=== PATIENT | female | born 1950 | race Caucasian/White ===

== ENCOUNTER → 2017-03-26 | Outpatient (CLI) | payer BC | LOC: C.PAPS 16:03 | PROVIDERS: ATTEND Registered Nurse | DX: Z01.419 Encounter for gynecological examination (general) (routine) without abnormal findings (principal) ==

== ENCOUNTER 2021-01-27 09:37 | Inpatient (IN) ==
[2021-01-27 11:46] LABS: Hematocrit (blood only) 28.2 % (37-47); Hemoglobin 9.6 g/dL (12.0-16.0); Mean Corpuscular Hemoglobin 33.2 pg (25-34); Mean Corpuscular Volume 97.6 fL (80-100); Platelet Count 161 K/uL (130-400); RDW Coefficient of Variation 16.4 % (11.5-14.5); Red Blood Count 2.89 M/uL (4.2-5.4); White Blood Count 1.47 K/uL (4.8-10.8)
--- NOTE | 2021-01-27 11:48 | XRay Report ---
XR chest 1V portable CLINICAL HISTORY: Dyspnea. Non-Hodgkin's lymphoma. COMPARISON STUDY: Chest CT October 15, 2020. FINDINGS: A left subclavian [id number]-h-[id number] is in place. There is no pneumothorax or pleural effusion. Cardiomegaly is unchanged. Linear opacities within the right mid and lower lung are noted. There is n o lobar consolidation. IMPRESSION: 1. No acute cardiopulmonary findings. Cardiomegaly. 2. Linear right lower lung opacities which favor atelectasis. ACT 112: Negative or not required by law. Electronically signed by: Jef Hartman M.D. 01/27/2021 11:47 AM
[2021-01-27 11:52] LABS: Partial Thromboplastin Ratio 0.9; Partial Thromboplastin Time 22.7 Seconds (21.0-31.0); Prothrombin Time 10.6 Seconds (9.0-12.0)
[2021-01-27 12:09] LABS: Albumin Level 3.3 gm/dl (3.4-5.0); BUN Creatinine Ratio 11.9 (10-20); Calcium 8.3 mg/dl (8.5-10.1); Creatinine Clr Calc Pharmacy 76.3 ml/min; Potassium 3.9 mmol/L (3.5-5.1)
[2021-01-27 12:14] LABS: Basophils # (auto) 0.01 K/uL (0-0.2); Basophils % (auto) 0.7 %; Lymphocytes # (auto) 0.31 K/uL (1.2-3.4); Lymphocytes % (auto) 21.1 %; Monocytes # (auto) 0.18 K/uL (0.11-0.59); Monocytes % (auto) 12.2 %; Neutrophils # (auto) 0.97 K/uL (1.4-6.5)
[2021-01-27 12:22] LABS: Albumin Globulin Ratio 1.1 (0.9-2); Bilirubin,Total 0.6 mg/dl (0.2-1); Globulin 3.1 gm/dl (2.5-4.0); Total Protein 6.4 gm/dl (6.4-8.2); Troponin I 0.035 ng/ml (0-0.045)
[2021-01-27 12:56] LABS: Appearance Urine Cloudy (Clear); Bacteria Urine Automated 4+ (Negative); Bilirubin Urine Negative (Negative); Blood Urine Negative (Negative); Color Urine Dark Yellow; Epithelial Cell Urine Auto 20-30 /lpf (0-5); Glucose Urine UA Negative (Negative); Ketones Urine Trace (Negative); Leukocyte Esterase Urine Trace (Negative); Nitrite Urine Positive (Negative); Protein Urine 1+ (Negative); RBC Urine Automated 0-4 /hpf (0-4); Specific Gravity Urine 1.022 (1.000-1.030); Urobilinogen Urine Negative (Negative); WBC Urine Automated >30 /hpf (0-5); pH Urine 6.5 (4.5-7.5)
[2021-01-27] MEDS ORDERED: cefTRIAXone SODIUM 2,000 MG/70 ML BAG IV STA (13:13)
--- NOTE | 2021-01-27 13:20 | Emergency Department Note ---
Impression & Plan COVID-19, Non Hodgkin's lymphoma, Acute UTI (urinary tract infection) ED Provider Note INFORMANT: Patient ED PROVIDER(S): Dhiraj Tomas MD CHIEF COMPLAINT: Shortness of breath PLAN: Disposition: Admitted Condition: Good Outpatient prescription management: none Referral: None MEDICAL DECISION MAKING: Patient presented because of shortness of breath and Covid. Her blood work did not reveal any acute findings. She has a pancytopenia and mild neutropenia which is similar to prior. Twelve-lead ECG revealed a normal sinus rhythm with poor R wave progression. Chest x-ray did not reveal any significant pneumonia. Some atelectasis noted. The patient was quite symptomatic. She was in isolation. A CT PE study was ordered to further elucidate the issue. A viral pattern pneumonia was seen. This is likely consistent with her Covid. The patient's urinalysis was concerning for infection. She was treated with IV Rocephin. I did discuss the case with the [facility] service Dr. Coleman,. Patient was evaluated in the ER for further management. Triage Nursing notes reviewed and agree them. Additional history obtained from from her oncologist, Dr. Raines. Vital Signs: reviewed and remarkable for no significant abnormalities Differential diagnosis: Reactive airway disease, pneumonia, pneumothorax, COPD, CHF, infections, cardiac ischemia, pulmonary embolism, musculoskeletal, gastrointestinal, as well as other pathologies. Diagnostics interpreted by me: ECG: Twelve-lead ECG was normal sinus rhythm at 70 bpm. Poor R wave p rogression. No ST elevation or depression. No PVCs or PACs. Normal axis. Cardiac Monitoring: Cardiac monitoring ordered by me: The patient was placed on continuous cardiac monitoring and observed. It revealed a normal sinus rhythm at 79 beats per minute without ectopy or evidence of dysrhythmia. Imaging studies: Chest x-ray. Findings: A chest x-ray was performed and revealed no pneumothorax, effusion, infiltrate, pulmonary edema, free air under the diaphragm, or wide mediastinum. Impression: No acute disease. CT PE study is negative for pulmonary malaise however a viral pattern pneumonia is present. [facility]PI: The patient is a 70 year old female who presents to the Emergency Room with complaints of shortness of breath. The patient tested positive for Covid at the end of last week. This started last week and is worsening. The patient also notes the following associated symptoms, fatigue and generalized weakness. Patient is undergoing chemotherapy for lymphoma. She notified her oncologist and he directed her here to the ER for evaluation and admission. The patient has found no relieving factors. Current pain is rated as 0/10. Pt denies LOC, headache, fevers, chills, diaphoresis, visual changes, neck pain, chest pain, nausea, vomiting, abdominal pain, back pain, melena, hematochezia, urinary symptoms, numbness, lymphadenopathy, rash, or other complaints. ROS: See above HPI for pertinent positives & negatives. A total of 10 systems reviewed and were otherwise negative. 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 Oropharynx unremarkable. EYES: Normal conjunctiva. Sclera non-icteric. NECK: Inspection normal. Non-tender. Supple. No nuchal rigidity. FROM. No masses. RESPIRATORY: Clear to auscultation. No wheezes. No rales. Normal respiratory effort. CARDIAC: Normal rate. Normal rhythm. No murmurs. No rubs. Extremities warm and well perfused. Pulses equal. No JVD. GI: Soft, non-distended. No tenderness to palpation. No rebound or guarding. No masses. RECTAL: Deferred. MUSCULOSKELETAL: Atraumatic. Chest examination reveals no tenderness. The back is symmetrical on inspection without obvious abnormality. There is no CVA tenderness to palpation. No joint edema. LOWER EXTREMITIES: Calves are equal size bilaterally and non-tender. Trace edema. No discoloration. NEURO: Normal sensorium. No sensory or motor deficits noted. SKIN: No rash or jaundice noted. Dhiraj Tomas MD Past Med/Surg History Medical History GERD (gastroesophageal reflux disease) "MILD" Hyperlipidemia Hypertension Lymphoma NON HODGKINS - RECENT DX (REASON FOR PROCEDURE) Wheezing REASON FOR INHALER Surgical History H/O foot surgery RT FOOT "TOES STRAIGHTENED" H/O lymph node biopsy H/O tubal ligation In her 30's History of appendectomy In her 20's History of colonoscopy History of esophagogastroduodenoscopy (EGD) History of laparoscopic cholecystectomy History of tooth extraction Port-A-Cath in place (02/01/20) Insertion of Mediport with Fluoroscopy, Left Subclavian Dr. 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 [employer] Feels Safe at Home: Yes Assistive Devices: Contacts and Glasses Allergies Allergies Allergy/AdvReac Type Severity Reaction Status Date / Time lisinopril Allergy Severe FACIAL AND Verified 01/25/21 11:50 THROAT SWELLING Home Meds Home Medications Medication Instructions Recorded Confirmed diltiazem HCl 120 mg 120 mg PO QAM 01/16/20 01/27/21 capsule,extended release 24 hr furosemide 40 mg tablet 40 mg PO QAM 01/16/20 01/27/21 montelukast 10 mg tablet 10 mg PO QAM 01/16/20 01/27/21 potassium chloride 20 mEq 20 meq PO QAM 01/16/20 01/27/21 tablet,extended release(part/cryst) metoprolol succinate 50 mg PO QAM 01/25/21 01/27/21 omega 7-uwq-ftz-fish oil [Fish Oil] 2 cap PO QAM 01/25/21 01/27/21 prednisone 100 mg PO DAILY PRN 01/27/21 01/27/21 prochlorperazine maleate 10 mg PO Q6H PRN 01/27/21 01/27/21 Results & Data (ED) Vital Signs Vital Signs - 24 hr 01/27/21 09:44 01/27/21 11:00 01/27/21 11:01 Temperature 36.7 C Temperature Source Temporal Artery Scan Pulse Rate 83 69 69 Pulse Rate from SpO2 Sensor 69 69 Respiratory Rate 20 19 20 Respiratory Effort / Characteristics Spontaneous Blood Pressure 144/81 H 135/88 Blood Pressure Mean 102 103 Blood Pressure Position Sitting Pulse Oximetry 94 95 94 Oxygen Delivery Method Room Air Sepsis Recent Fever Within 48 Hours No Sepsis New/Unexplained Change in Mental Status No Sepsis Action Taken by Nursing No Action Required 01/27/21 11:27 01/27/21 11:30 01/27/21 11:31 Temperature Temperature Source Pulse Rate 67 71 Pulse Rate from SpO2 Sensor 67 71 Respiratory Rate 20 17 Respiratory Effort / Characteristics Blood Pressure 159/77 H Blood Pressure Mean 104 Blood Pressure Position Pulse Oximetry 96 94 94 Oxygen Delivery Method Room Air Sepsis Recent Fever Within 48 Hours Sepsis New/Unexplained Change in Mental Status Sepsis Action Taken by Nursing 01/27/21 12:00 01/27/21 12:01 01/27/21 12:30 Temperature Temperature Source Pulse Rate 65 68 72 Pulse Rate from SpO2 Sensor 65 68 74 Respiratory Rate 20 19 21 Respiratory Effort / Characteristics Blood Pressure 149/79 H 143/75 H Blood Pressure Mean 102 97 Blood Pressure Position Pulse Oximetry 93 94 96 Oxygen Delivery Method Sepsis Recent Fever Within 48 Hours Sepsis New/Unexplained Change in Mental Status Sepsis Action Taken by Nursing 01/27/21 12:31 01/27/21 13:00 01/27/21 13:01 Temperature Temperature Source Pulse Rate 71 74 71 Pulse Rate from SpO2 Sensor 72 73 72 Respiratory Rate 15 16 20 Respiratory Effort / Characteristics Blood Pressure 146/78 H Blood Pressure Mean 100 Blood Pressure Position Pulse Oximetry 97 95 96 Oxygen Delivery Method Sepsis Recent Fever Within 48 Hours Sepsis New/Unexplained Change in Mental Status Sepsis Action Taken by Nursing 01/27/21 13:30 01/27/21 13:31 01/27/21 14:00 Temperature Temperature Source Pulse Rate 82 73 85 Pulse Rate from SpO2 Sensor 79 73 85 Respiratory Rate 16 15 20 Respiratory Effort / Characteristics Blood Pressure 132/77 136/97 Blood Pressure Mean 95 110 Blood Pressure Position Pulse Oximetry 96 95 99 Oxygen Delivery Method Sepsis Recent Fever Within 48 Hours Sepsis New/Unexplained Change in Mental Status Sepsis Action Taken by Nursing 01/27/21 14:01 01/27/21 14:30 01/27/21 14:31 Temperature Temperature Source Pulse Rate 79 74 73 Pulse Rate from SpO2 Sensor 79 73 72 Respiratory Rate 16 17 13 Respiratory Effort / Characteristics Blood Pressure 152/75 H Blood Pressure Mean 100 Blood Pressure Position Pulse Oximetry 96 95 96 Oxygen Delivery Method Sepsis Recent Fever Within 48 Hours Sepsis New/Unexplained Change in Mental Status Sepsis Action Taken by Nursing 01/27/21 15:00 Temperature Temperature Source Pulse Rate 79 Pulse Rate from SpO2 Sensor 78 Respiratory Rate 25 H Respiratory Effort / Characteristics Blood Pressure 128/80 Blood Pressure Mean 96 Blood Pressure Position Pulse Oximetry 96 Oxygen Delivery Method Sepsis Recent Fever Within 48 Hours Sepsis New/Unexplained Change in Mental Status Sepsis Action Taken by Nursing Laboratory Data Result diagrams: 01/27/21 10:55 01/27/21 10:55 Lab Results 01/27/21 01/27/21 01/27/21 Range/Units 10:55 10:55 10:55 WBC 1.47 L (4.8-10.8) K/uL RBC 2.89 L (4.2-5.4) M/uL Hgb 9.6 L (12.0-16.0) g/dL Hct 28.2 L (37-47) % MCV 97.6 (80-100) fL MCH 33.2 (25-34) pg MCHC 34.0 (32-36) g/dL RDW Std Deviation 58.0 H (36.4-46.3) fL RDW Coeff of [place] 16.4 H (11.5-14.5) % Plt Count 161 (130-400) K/uL MPV 10.0 (7.4-10.4) fL Immature Gran % (Auto) 0.0 % Neut % (Auto) 66.0 % Lymph % (Auto) 21.1 % [place] % (Auto) 12.2 % Eos % (Auto) 0.0 % Baso % (Auto) 0.7 % Neut # (Auto) 0.97 L* (1.4-6.5) K/uL Lymph # (Auto) 0.31 L (1.2-3.4) K/uL [place] # (Auto) 0.18 (0.11-0.59) K/uL Eos # (Auto) 0.00 (0-0.5) K/uL Baso # (Auto) 0.01 (0-0.2) K/uL Immature Gran # (Auto) 0.00 (0.00-0.02) K/uL PT 10.6 (9.0-12.0) Seconds INR 1.0 (0.9-1.1) APTT 22.7 (21.0-31.0) Seconds PTT Ratio 0.9 Sodium 139 (136-145) mmol/L Potassium 3.9 (3.5-5.1) mmol/L Chloride 109 H (98-107) mmol/L Carbon Dioxide 27 (21-32) mmol/L Anion Gap 3.0 (3-11) BUN 9 (7-18) mg/dl Creatinine 0.78 (0.6-1.2) mg/dl Est Cr Clr Drug Dosing 76.3 ml/min Est GFR ( Amer) 88.0 Est GFR (Non-Af Amer) 76.0 BUN/Creatinine Ratio 11.9 (10-20) Glucose 105 H (70-99) mg/dl Calcium 8.3 L (8.5-10.1) mg/dl Magnesium 2.0 (1.8-2.4) mg/dl Total Bilirubin 0.6 (0.2-1) mg/dl AST 53 H (15-37) U/L ALT 56 (12-78) U/L Alkaline Phosphatase 124 H (45-117) U/L Troponin I 0.035 (0-0.045) ng/ml Total Protein 6.4 (6.4-8.2) gm/dl Albumin 3.3 L (3.4-5.0) gm/dl Globulin 3.1 (2.5-4.0) gm/dl Albumin/Globulin Ratio 1.1 (0.9-2) Urine Color Urine Appearance (Clear) Urine pH (4.5-7.5) Ur Specific [place] (1.000-1.030) Urine Protein (Negative) Urine Glucose (UA) (Negative) Urine Ketones (Negative) Urine Blood (Negative) Urine Nitrite (Negative) Urine Bilirubin (Negative) Urine Urobilinogen (Negative) Ur Leukocyte Esterase (Negative) Urine WBC (Auto) (0-5) /hpf Urine RBC (Auto) (0-4) /hpf U Hyaline Cast (Auto) (0-5) /lpf U Epithel Cells (Auto) (0-5) /lpf Urine Bacteria (Auto) (Negative) 01/27/21 Range/Units 12:22 WBC (4.8-10.8) K/uL RBC (4.2-5.4) M/uL Hgb (12.0-16.0) g/dL Hct (37-47) % MCV (80-100) fL MCH (25-34) pg MCHC (32-36) g/dL RDW Std Deviation (36.4-46.3) fL RDW Coeff of [place] (11.5-14.5) % Plt Count (130-400) K/uL MPV (7.4-10.4) fL Immature Gran % (Auto) % Neut % (Auto) % Lymph % (Auto) % [place] % (Auto) % Eos % (Auto) % Baso % (Auto) % Neut # (Auto) (1.4-6.5) K/uL Lymph # (Auto) (1.2-3.4) K/uL [place] # (Auto) (0.11-0.59) K/uL Eos # (Auto) (0-0.5) K/uL Baso # (Auto) (0-0.2) K/uL Immature Gran # (Auto) (0.00-0.02) K/uL PT (9.0-12.0) Seconds INR (0.9-1.1) APTT (21.0-31.0) Seconds PTT Ratio Sodium (136-145) mmol/L Potassium (3.5-5.1) mmol/L Chloride (98-107) mmol/L Carbon Dioxide (21-32) mmol/L Anion Gap (3-11) BUN (7-18) mg/dl Creatinine (0.6-1.2) mg/dl Est Cr Clr Drug Dosing ml/min Est GFR ( Amer) Est GFR (Non-Af Amer) BUN/Creatinine Ratio (10-20) Glucose (70-99) mg/dl Calcium (8.5-10.1) mg/dl Magnesium (1.8-2.4) mg/dl Total Bilirubin (0.2-1) mg/dl AST (15-37) U/L ALT (12-78) U/L Alkaline Phosphatase (45-117) U/L Troponin I (0-0.045) ng/ml Total Protein (6.4-8.2) gm/dl Albumin (3.4-5.0) gm/dl Globulin (2.5-4.0) gm/dl Albumin/Globulin Ratio (0.9-2) Urine Color Dark Yellow Urine Appearance Cloudy A (Clear) Urine pH 6.5 (4.5-7.5) Ur Specific [place] 1.022 (1.000-1.030) Urine Protein 1+ H (Negative) Urine Glucose (UA) Negative (Negative) Urine Ketones Trace H (Negative) Urine Blood Negative (Negative) Urine Nitrite Positive A (Negative) Urine Bilirubin Negative (Negative) Urine Urobilinogen Negative (Negative) Ur Leukocyte Esterase Trace H (Negative) Urine WBC (Auto) >30 H (0-5) /hpf Urine RBC (Auto) 0-4 (0-4) /hpf U Hyaline Cast (Auto) 5-10 H (0-5) /lpf U Epithel Cells (Auto) 20-30 H (0-5) /lpf Urine Bacteria (Auto) 4+ H (Negative) Administered Medications Discontinued Medications Ceftriaxone Sodium (Rocephin) 2,000 mg in 70 mls @ 140 mls/hr IV NOW STA Stop: 01/27/21 13:42 Last Infusion: 01/27/21 14:34 Dose: 0 mls/hr Documented by: [id number] Admin: 01/27/21 13:59 Dose: 140 mls/hr Documented by: [id number] Ioversol (Optiray 320 125ml) 120 ml IV ONCE ONE Stop: 01/27/21 14:15 Last Admin: 01/27/21 14:15 Dose: 120 ml Documented by: [id number] Discharge Plan Visit Data Chief Complaint: Illness Stated Complaint: +COVID,COUGH,REF BY DOC ED Provider: Dhiraj Tomas Discharge Problem: COVID-19, Non Hodgkin's lymphoma, Acute UTI (urinary tract infection) Forms Stand Alone Forms: [facility] Prescriptions Prescriptions: No Action potassium chloride [Klor-Con M20] 20 mEq tablet,ER particles/crystals 20 meq PO QAM RF: 0 diltiazem HCl 120 mg capsule,extended release 24hr 120 mg PO QAM RF: 0 montelukast 10 mg tablet 10 mg PO QAM RF: 0 furosemide 40 mg tablet 40 mg PO QAM RF: 0 prednisone 20 mg tablet 100 mg PO DAILY PRN (Reason: Chemo Treatments) RF: 0 prochlorperazine maleate 10 mg tablet 10 mg PO Q6H PRN (Reason: Nausea) RF: 0 metoprolol succinate 50 mg tablet extended release 24 hr 50 mg PO QAM RF: 0 omega 5-auz-skj-fish oil [Fish Oil] 1,200 (144-216) mg Capsule 2 cap PO QAM RF: 0
[2021-01-27] MEDS ORDERED: OPTIRAY 320 125ml IV ONE (14:14)
--- NOTE | 2021-01-27 14:38 | CT Scan Report ---
CT ANGIOGRAM OF THE CHEST CLINICAL HISTORY: covid +. LYMPHOMA COUGH, SHORTNESS OF BREATH. INABILITY TO DRINK COMPARISON STUDY: 10/25/2020 TECHNIQUE: Following the IV administration of 120 mL of Optiray-320, CT angiogram of the thorax was p erformed from the thoracic inlet to the lung bases utilizing the pulmonary embolus protocol. Images a re reviewed in the axial, sagittal, and coronal planes. IV contrast was administered without complica tion. MIP imaging was performed. A dose lowering technique was utilized adhering to the principles o f ALARA. CT DOSE: 571.96 mGycm FINDINGS: There is pathologic retroperitoneal lymphadenopathy within the upper abdomen. This is decreased when compared the prior study. No pathologically enlarged axillary mediastinal or hilar lymph nodes were visualized. Interval resolution of the previously described pleural base mass associated with the right third rib . There is mild right third rib sclerosis. There was no evidence of thoracic aortic dilatation. There were no pulmonary artery filling defects to indicate acute pulmonary embolism. No pleural effusions are visualized. There are multifocal groundglass pulmonary opacities with a peripheral distribution. The findings are consistent with a multifocal pneumonia, and are suggestive of Covid 19 pneumonia. IMPRESSION: 1. No evidence of acute pulmonary embolism 2. Decreasing retroperitoneal lymphadenopathy 3. Interval resolution of the previously described pleural-based mass associated with the right third rib 4. Interval development of multifocal groundglass pulmonary opacities with a peripheral distribution. The findings are consistent with although not specific for Covid 19 pneumonia ACT 112: Negative or not required by law. Electronically signed by: Peña Stoner M.D. 01/27/2021 2:37 PM
--- NOTE | 2021-01-27 15:07 | History & Physical Report ---
Date of Service January 27, 2021 Assessment & Plan (1) COVID-19: Covid pneumonia, this is slight on examination. Patient has a positive Covid test and a nonproductive cough. She has minor groundglass changes which are multifocal on CTA. She is not significantly hypoxemic. Will not institute remdesivir therapy or convalescent plasma at this time. We will start on dexamethasone monitor for hypoxia. In the ER she just had a few readings below 94% The majority of her symptoms may be related to a urinary tract infection present on admission CTA 01/27/21 IMPRESSION: 1. No evidence of acute pulmonary embolism 2. Decreasing retroperitoneal lymphadenopathy 3. Interval resolution of the previously described pleural-based mass associated with the right third rib 4. Interval development of multifocal groundglass pulmonary opacities with a peripheral distribution. The findings are consistent with although not specific for Covid 19 pneumonia (2) Acute UTI (urinary tract infection): pt received Rocephin in the ER document to be E. coli resistant to penicillin and quinolones per in ER culture 01/25/2021 patient likely has metabolic encephalopathy with her extreme fatigue from the neck gram-negative E. coli UTI will be treated with antibiotics and hopefully improve. She will receive 1 additional liter of fluid (3) Non Hodgkin's lymphoma: Patient continues treatment with non-Hodgkin's lymphoma receiving cyclic therapy woman gone 3 weeks off. She is due for therapy this week Patient has mild depression of her white blood cell count 1.47 on admission repeat with differential in the morning Patient also has mild elevation of AST the is slightly above normal at 53 and alk phos also slightly above normal at 124. (4) Hypertension: Patient remains on diltiazem metoprolol and furosemide for her hypertension control (5) Headache: Patient has a right retro-orbital headache try some Toradol to help with her pain. The patient was offered CT of her head with contrast to evaluate for metastatic disease she does not wish to proceed with this at this time. (6) DVT prophylaxis: Your diagnosis of lymphoma and recent diagnosis of Covid patient will be on Covid Lovenox weightbase 0.5/kg twice daily therapy for DVT prevention Confirm she is a full code History of Present Illness Primary Care Provider: William Gray 70 year old female who presents to the Emergency Room with complaints of shortness of breath. The patient tested positive for Covid 01/25/21. Patient was in the ER on that day and did have a urinary culture sent which is positive for E. coli which is resistant to penicillins and quinolones. She is not being on any antibiotics for that infection. Her upper respiratory symptoms started likely on 22 January and she has been worsening with a nonproductive cough extreme fatigue. Patient's had diarrhea on and off since her last chemotherapy which was approximately 3 weeks ago. Prior to her upper respiratory symptoms the patient was seen in the oncology clinic and given a liter of fluid for her diarrhea. She says this was at least 2 weeks ago. Patient has not lost taste or smell has had poor appetite since beginning her chemotherapy. Patient is due for her next cycle of chemotherapy this week. Patient is undergoing chemotherapy for follicular lymphoma. The patient has found no relieving factors. Current pain is rated as 0/10. Pt denies LOC, headache, fevers, chills, diaphoresis, visual changes, neck pain, chest pain, nausea, vomiting, abdominal pain, back pain, melena, hematochezia, urinary symptoms, numbness, lymphadenopathy, rash, or other complaints. Allergies Allergy/AdvReac Type Severity Reaction Status Date / Time lisinopril Allergy Severe FACIAL AND Verified 01/25/21 11:50 THROAT SWELLING Home Medications Medication Instructions Recorded Confirmed Type diltiazem HCl 120 mg 120 mg PO QAM 01/16/20 01/27/21 History capsule,extended release 24 hr furosemide 40 mg tablet 40 mg PO QAM 01/16/20 01/27/21 History montelukast 10 mg tablet 10 mg PO QAM 01/16/20 01/27/21 History potassium chloride 20 mEq 20 meq PO QAM 01/16/20 01/27/21 History tablet,extended release(part/cryst) metoprolol succinate 50 mg PO QAM 01/25/21 01/27/21 History omega 2-mzj-slc-fish oil [Fish Oil] 2 cap PO QAM 01/25/21 01/27/21 History prednisone 100 mg PO DAILY PRN 01/27/21 01/27/21 History prochlorperazine maleate 10 mg PO Q6H PRN 01/27/21 01/27/21 History Past Med/Surg History Medical History GERD (gastroesophageal reflux disease) "MILD" Hyperlipidemia Hypertension Lymphoma NON HODGKINS - RECENT DX (REASON FOR PROCEDURE) Wheezing REASON FOR INHALER Surgical History H/O foot surgery RT FOOT "TOES STRAIGHTENED" H/O lymph node biopsy H/O tubal ligation In her 30's History of appendectomy In her 20's History of colonoscopy History of esophagogastroduodenoscopy (EGD) History of laparoscopic cholecystectomy History of tooth extraction Port-A-Cath in place (02/01/20) Insertion of Mediport with Fluoroscopy, Left Subclavian Dr. 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 Beliefs That Will Affect Care: None marital status: / Current Living Situation: Alone current occupational status: employed current occupation: [id number] Feels Safe at Home: Yes Assistive Devices: Contacts and Glasses Review of Systems Review of Systems: Mild distress and moderate fatigue Complains of left retro-orbital headache, without blurry or double vision no speech or swallowing issues no chest pain, pressure or palpitations no shortness of breath, nonproductive cough but now wheezes no abdominal pain, nausea or vomiting, has had intermittent persistent diarrhea She has experienced dysuria over the last 24 hours with urinary frequency but no hematuria no focal joint pain or swelling no back pain, CVA tenderness or radicular pain no bruising, bleeding or rashes no focal signs of weakness or numbness or altered sensation no complaints of anxiety or depression.. Physical Exam Physical Exam: The patient appeared well nourished and normally developed. PERRL EOMI Vital signs as documented. Head exam is normocephalic atraumatic no scleral icterus Neck is without JVD, thyromegaly, or carotid bruits. Lungs there may be scant basilar rales which clear with inspiration no focal loss of breath sounds or egophony or dullness Cardiac exam, Rhythm is regular.. No murmurs, rubs or gallops. Abdominal exam reveals normal bowel sounds, soft non tender, no masses Extremities are nonedematous and both pedal pulses are present Neurologic exam is alert and oriented, no focal loss of strength or sensation Skin is without bruises or rashes Psychologically is without concerns for anxiety or depression Results & Data Results & Data ([facility]) Vital Signs (Past 12 Hours) Vital Signs Temp Pulse Resp BP Pulse Ox 01/27/21 14:31 73 13 96 01/27/21 14:30 74 17 152/75 H 95 01/27/21 14:01 79 16 96 01/27/21 14:00 85 20 136/97 99 01/27/21 13:31 73 15 95 01/27/21 13:30 82 16 132/77 96 01/27/21 13:01 71 20 96 01/27/21 13:00 74 16 146/78 H 95 01/27/21 12:31 71 15 97 01/27/21 12:30 72 21 143/75 H 96 01/27/21 12:01 68 19 94 01/27/21 12:00 65 20 149/79 H 93 01/27/21 11:31 71 17 94 01/27/21 11:30 67 20 159/77 H 94 01/27/21 11:27 96 01/27/21 11:01 69 20 94 01/27/21 11:00 69 19 135/88 95 01/27/21 09:44 98.1 F 83 20 144/81 H 94 PG Care Time/CCT Total # of Minutes Spent Total Time Spent with Patient: Total time spent is greater than 50% in coordination of care (as documented) at patient's floor/unit and/or counseling patient: Coding Level of Care Code 28065 Initial Inpt Care Lvl 3 Diagnoses COVID-19 U07.1 Acute UTI (urinary tract infection) N39.0 Non Hodgkin's lymphoma C85.90 Hypertension I10 Headache R51.9 DVT prophylaxis Z29.9
[2021-01-27] MEDS ORDERED: KETOROLAC 30 MG/ML VIAL IV ONE (15:41)
--- NOTE | 2021-01-27 16:16 | Electrocardiogram Report ---
Test Reason : Blood Pressure : / mmHG Vent. Rate : 070 BPM Atrial Rate : 070 BPM P-R Int : 166 ms QRS Dur : 102 ms QT Int : 394 ms P-R-T Axes : 080 001 060 degrees QTc Int : 425 ms Normal sinus rhythm When compared with ECG of 25-JAN-2021 11:29, No significant change was found Confirmed by Wally Orozco ([id number]) on 01/27/2021 4:15:58 PM Referred By: William Dykes Confirmed By:Petros Orozco
[2021-01-27] MEDS ORDERED: cefTRIAXone SODIUM 1,000 MG in DEXTROSE 5% 50 ML IV SCH (19:35)
[2021-01-27] MEDS ORDERED: SODIUM CHLORIDE 0.9% 1000ML 1,000 ML IV SCH (19:35)
[2021-01-27] MEDS ORDERED: ALUMINUM/MAGNESIUM SUSP 30 ML UDC PO PRN (19:35)
[2021-01-27] MEDS ORDERED: ENOXAPARIN 0.5 MG/KG SQ SCH (19:35)
[2021-01-27] MEDS ORDERED: ACETAMINOPHEN 500 MG TAB PO PRN (19:35)
[2021-01-27] MEDS ORDERED: POLYETHYLENE (MIRALAX) 17 GM PACK PO PRN (19:35)
[2021-01-27] MEDS ORDERED: ONDANSETRON INJ 2 MG/ML 2 ML VIAL IV PRN (19:35)
[2021-01-27] MEDS: dexAMETHasone 6 MG in SYRINGE 0 ML IV SCH (21:37)
[2021-01-27] MEDS: ENOXAPARIN INJ 60 MG/0.6 ML SYR SQ SCH (21:38)
[2021-01-28 07:06] LABS: Hematocrit (blood only) 27.7 % (37-47); Hemoglobin 9.5 g/dL (12.0-16.0); Lymphocytes # (auto) 0.12 K/uL (1.2-3.4); Lymphocytes % (auto) 20.3 %; Mean Corpuscular Hemoglobin 33.5 pg (25-34); Mean Corpuscular Hgb Conc 34.3 g/dL (32-36); Mean Corpuscular Volume 97.5 fL (80-100); Monocytes # (auto) 0.08 K/uL (0.11-0.59); Monocytes % (auto) 13.6 %; Neutrophils # (auto) 0.39 K/uL (1.4-6.5); Neutrophils % (auto) 66.1 %; Platelet Count 145 K/uL (130-400); RDW Coefficient of Variation 16.1 % (11.5-14.5); RDW Standard Deviation 57.1 fL (36.4-46.3); Red Blood Count 2.84 M/uL (4.2-5.4); White Blood Count 0.59 K/uL (4.8-10.8)
[2021-01-28 07:15] LABS: BUN Creatinine Ratio 13.3 (10-20); Calcium 8.2 mg/dl (8.5-10.1); Creatinine Clr Calc Pharmacy 89.7 ml/min; Est GFR (African American) 103.3; Est GFR (Non-African American) 89.2; Potassium 4.6 mmol/L (3.5-5.1)
[2021-01-28] MEDS: dexAMETHasone 6 MG in SYRINGE 0 ML IV SCH (07:39)
[2021-01-28] MEDS: ENOXAPARIN INJ 60 MG/0.6 ML SYR SQ SCH (07:39)
[2021-01-28] MEDS ORDERED: dilTIAZem HCL 120 MG CAPCR PO SCH (09:00)
[2021-01-28] MEDS ORDERED: FUROSEMIDE 40 MG TAB PO SCH (09:00)
[2021-01-28] MEDS ORDERED: OMEGA-3 (PURIFIED FISH OIL) 1 GM CAP PO SCH (09:00)
[2021-01-28] MEDS ORDERED: METOPROLOL SUCC 50MG EXT REL TAB PO SCH (09:00)
[2021-01-28] MEDS ORDERED: MONTELUKAST SODIUM 10 MG TABLET PO SCH (09:00)
[2021-01-28] MEDS ORDERED: POTASSIUM CHLORIDE CRTAB 20 MEQ TABCR PO SCH (09:00)
[2021-01-28] MEDS ORDERED: cefTRIAXone SODIUM 2,000 MG in DEXTROSE 5% 50 ML IV SCH (14:00)
--- NOTE | 2021-01-28 16:05 | Discharge Summary ---
Date of Service January 28, 2021 Admission HPI Per Admitting Provider 70 year old female who presents to the Emergency Room with complaints of shortness of breath. The patient tested positive for Covid 01/25/21. Patient was in the ER on that day and did have a urinary culture sent which is positive for E. coli which is resistant to penicillins and quinolones. She is not being on any antibiotics for that infection. Her upper respiratory symptoms started likely on 22 January and she has been worsening with a nonproductive cough extreme fatigue. Patient's had diarrhea on and off since her last chemotherapy which was approximately 3 weeks ago. Prior to her upper respiratory symptoms the patient was seen in the oncology clinic and given a liter of fluid for her diarrhea. She says this was at least 2 weeks ago. Patient has not lost taste or smell has had poor appetite since beginning her chemotherapy. Patient is due for her next cycle of chemotherapy this week. Patient is undergoing chemotherapy for follicular lymphoma. The patient has found no relieving factors. Current pain is rated as 0/10. Pt denies LOC, headache, fevers, chills, diaphoresis, visual changes, neck pain, chest pain, nausea, vomiting, abdominal pain, back pain, melena, hematochezia, urinary symptoms, numbness, lymphadenopathy, rash, or other complaints. Principal Diagnosis Acute UTI, Covid-19 Discharge Exam Constitutional WD/WN, vitals as above Eyes PERRL, conjunctivae normal, anicteric sclerae ENMT external ear and nose normal, oropharynx normal Neck trachea midline, no thyromegaly Respiratory normal respiratory effort, lungs clear to auscultation Cardiovascular RRR, no murmur, no edema Chest (Breasts) Chest: normal inspection of chest Gastrointestinal (Abdomen) normal bowel sounds, soft, nontender, no hepatosplenomegaly Musculoskeletal Extremities: extremities normal to inspection; no cyanosis and no clubbing Skin no rashes, warm and dry Neurologic moves all extremities and awake; no focal motor deficits Psychiatric A+Ox3, euthymic affect Lymphatic no lymphedema Discharge Data Allergies Allergy/AdvReac Type Severity Reaction Status Date / Time lisinopril Allergy Severe FACIAL AND Verified 02/01/21 09:30 THROAT SWELLING Consultations 01/27/21 15:50 ED Decision to Admit Stat Ordered Studies 01/27/21 13:13 CT angio chest PE protocol Stat Chest x-ray Hospital Course (1) COVID-19: Covid pneumonia, this is slight on examination. Patient has a positive Covid test and a nonproductive cough. She has minor groundglass changes which are multifocal on CTA. She is not significantly hypoxemic. Will not institute remdesivir therapy or convalescent plasma at this time. She was started on dexamethasone and did not have any significant hypoxia overnight. In the ER she just had a few readings below 94% The majority of her symptoms may be related to a urinary tract infection present on admission. Continue dexamethasone to finish out a 5-day course after discharge CTA 01/27/21 IMPRESSION: 1. No evidence of acute pulmonary embolism 2. Decreasing retroperitoneal lymphadenopathy 3. Interval resolution of the previously described pleural-based mass associated with the right third rib 4. Interval development of multifocal groundglass pulmonary opacities with a peripheral distribution. The findings are consistent with although not specific for Covid 19 pneumonia Monitor for worsening symptoms at home although she is at day 7 of her illness and is doing very well with this. No fevers, is neutropenic but no need to keep in house Blood cultures from several days ago were negative (2) Acute UTI (urinary tract infection): pt received Rocephin in the ER document to be E. coli resistant to penicillin and quinolones per in ER culture 01/25/2021 patient likely has metabolic encephalopathy with her extreme fatigue from the neck gram-negative E. coli UTI will be treated with antibiotics and is much improved Sent home with cefdinir to finish out a 1 week course (3) Non Hodgkin's lymphoma: Patient continues treatment with non-Hodgkin's lymphoma receiving cyclic therapy woman gone 3 weeks off. She is due for therapy this week but this will be delayed due to having Covid-19 With ANC 390, but afebrile Discussed case with oncology-she is stable for discharge home with follow-up next week (4) Hypertension: Patient remains on diltiazem metoprolol and furosemide for her hypertension control-continue such (5) Headache: Patient had a right retro-orbital headache-received Toradol to help with her pain and this is now completely resolved. The patient was offered CT of her head with contrast to evaluate for metastatic disease she does not wish to proceed with this at this time. (6) DVT prophylaxis: Lovenox Disposition-stable for discharge home Total Time Total Time Spent Total Time Spent (In Minutes): 35 minutes Total Time Includes: Examination of the Patient, Discharge Planning, Medication Reconciliation and Communication With Other Providers (Oncology) Discharge Plan Discharge Items Patient Disposition: Home - Self-Care Reason For Visit: METABOLIC ENCEPHALOPATHY,UTI POA,COVID PNEUMONIA Discharge Diagnosis: COVID-19 Pneumonia, UTI Condition on Discharge: Good Activity: As commented below Bathing: No limitations Exercise/Sports: Gradually increase as tolerated Non-emergency contact: Primary Care Provider and Oncologist Call non-emergency contact if: you have any medication questions and your symptoms worsen Follow-up/Referrals: William Dykes V., [Physician] - (Dr. Dykes would like you to call his office in the morning to reschedule your appointment.) William Gray [Primary Care Provider] - 02/18/21 2:00 pm (Follow up within 1-2 weeks.) Diet: Heart Healthy Addtl Attending Provider Instructions: Please finish out 3 more days of dexamethasone (a steroid) for your COVID pneumonia. Please finish out 6 more days of an antibiotic for you UTI. Follow up with Dr. Dykes-he wants you to call his office in the morning to schedule. If you have worsening shortness of breath, cough, chest pains, or fevers, please return to the ER. Pending Studies at Discharge: Yes Stand-Alone Forms: My [facility] Medications and DC Order Prescriptions: New cefdinir 300 mg capsule 300 mg PO BID Qty: 12 RF: 0 dexamethasone 6 mg tablet 6 mg PO DAILY Qty: 3 RF: 0 Continued potassium chloride [Klor-Con M20] 20 mEq tablet,ER particles/crystals 20 meq PO QAM RF: 0 diltiazem HCl 120 mg capsule,extended release 24hr 120 mg PO QAM RF: 0 montelukast 10 mg tablet 10 mg PO QAM RF: 0 furosemide 40 mg tablet 40 mg PO QAM RF: 0 prednisone 20 mg tablet 100 mg PO DAILY PRN (Reason: Chemo Treatments) RF: 0 prochlorperazine maleate 10 mg tablet 10 mg PO Q6H PRN (Reason: Nausea) RF: 0 metoprolol succinate 50 mg tablet extended release 24 hr 50 mg PO QAM RF: 0 omega 0-ztg-rwu-fish oil [Fish Oil] 1,200 (144-216) mg Capsule 2 cap PO QAM RF: 0 Discharge Orders: Discharge Order (Routine); Ordered 01/28/21 Ordered By: Denise Brito/Other Patient Handouts: COVID-19 Home Care, Urinary Tract Infections in Women, Disinfecting Your Home of COVID-19 Admission Data Admit Date/Time: 01/27/21 15:41 Attending Provider: Denise Heart Admit Provider: Gallo Coleman Primary Care Provider: William Gray Other Interventions: Discharge Summary Assessment (RN) Last Done: 01/28/21 16:13 Coding Level of Care Code D/C Day Management >30 mins Diagnoses COVID-19 U07.1 Acute UTI (urinary tract infection) N39.0 Non Hodgkin's lymphoma C85.90 Hypertension I10 Headache R51.9 DVT prophylaxis Z29.9
== END 2021-01-28 18:36 | disposition home or self-care (01) | DRG 177 ==
LOC: ED 09:37 → SUATTDRO 15:41 → 2S 15:41

== ENCOUNTER 2021-02-01 08:32 | Inpatient (IN) ==
[2021-02-01] MEDS ORDERED: dilTIAZem HCl 5 MG/ML 5 ML VIAL IV STA (09:12)
[2021-02-01] MEDS ORDERED: STAT IV Infusion **Titration per Protocol STA (09:12)
--- NOTE | 2021-02-01 09:12 | Emergency Department Note ---
Impression & Plan Atrial fibrillation with rapid ventricular response, COVID-19, Acute UTI (urinary tract infection) ED Provider Note NAME: MABEL PEREYRA AGE: 70 SEX: F : 1950 ARRIVES VIA: Walk-In INFORMANT: Patient ED PROVIDER(S): Shun Laboy DO CHIEF COMPLAINT: weakness HPI: Patient is a 70-year-old female with recent admission for Covid who presents to the ER for weakness. Her symptoms started on the with Covid. She still does have a little bit of a cough but denies any chest pain or shortness of breath. She notes that over the past 24 hours she feels extremely weak. History of non-Hodgkin's lymphoma last chemo about 3 weeks ago. Denies any belly pain nausea vomiting or diarrhea. No dysuria urgency or frequency. No other exacerbating or remitting factors. She is still taking her antibiotic for her UTI which grew out E. coli. She had no urinary symptoms at this time or when she was diagnosed with this. ROS: See above HPI for pertinent positives & negatives. A total of 10 systems reviewed and were otherwise negative. PAST MEDICAL HISTORY:See Below PAST SURGICAL HISTORY:See Below FAMILY HISTORY:See Below SOCIAL HISTORY:See Below HOME MEDICATIONS:See Below ALLERGIES:See Below VITALS:See Below PHYSICAL EXAMINATION: GENERAL: Sitting up in bed, alert, well appearing, well nourished, no distress, non-toxic EYE EXAM: normal conjunctiva. OROPHARYNX: no exudate, no erythema, lips, buccal mucosa, and tongue normal and mucous membranes are moist NECK: supple, no nuchal rigidity, no adenopathy, non-tender LUNGS: Clear to auscultation. Normal chest wall mechanics HEART: Tachycardic and irregular regular, S1 normal and S2 normal ABDOMEN: abdomen soft, non-tender, normo-active bowel sounds, no masses, no rebound or guarding. BACK: Back is symmetrical on inspection and there is no deformity, no midline tenderness, no CVA tenderness. SKIN: no rashes and no bruising UPPER EXTREMITIES: upper extremities are grossly normal. LOWER EXTREMITIES: No pitting edema. NEURO EXAM: Normal sensorium, cranial nerves II-XII grossly intact, normal speech, no gross weakness of arms, no gross weakness of legs. MEDICAL DECISION MAKING: Patient is a 70-year-old female who presents the ER for weakness. She was rece ntly diagnosed is Covid positive. She was admitted for UTI and Covid positive. She was recently discharged. Symptoms got worse for the past 24 hours. IV was established blood work was obtained. Labs show no significant leukocytosis. Mild anemia 11.8. INR unremarkable. BMP with mild hypokalemia. LFTs were workable for mild transaminitis. Bilirubin was normal. Troponin was detectable but not positive. UA was contaminated. EKG confirmed A. fib RVR. Rate would wax and wane between 130 and 90s. She was placed on a Cardizem drip. She was updated bedside. Discussed with hospitalist for further evaluation. Triage Nursing notes reviewed. Limited review of prior medical records performed Vital Signs: reviewed and remarkable for no significant abnormalities Differential diagnosis: Differential diagnoses includes but is not limited to toxic, metabolic, infectious, traumatic, cardiac, neurologic, hematologic, psychiatric and infl ammatory etiologies. ER treatment provided: See below Diagnostics interpreted by me: ECG: A. fib RVR rate of 106 Normal axis No PVCs Nonspecific ST wave changes QTC 448 Cardiac Monitoring: An order was placed for continuous cardiac monitoring. The monitor shows a rate of 125 with afib rhythm. Laboratory studies: As stated above and show below. Imaging studies: Portable AP upright 1 view of the chest shows no focal infiltrate or pneumothora x Consultation(s): Discussed with Dr. Jose Luis Coleman for further evaluation Procedures: none Critical Care: I have personally spent 31 minutes of critical care time in the direct management of this patient. This includes bedside care, interpretation of diagnostic studies, and testing, discussion with consultants, patient, and family members, and other required patient management activities. This 31 minutes is in excess of all separately billable procedures. Past Med/Surg History Medical History GERD (gastroesophageal reflux disease) "MILD" Hyperlipidemia Hypertension Lymphoma NON HODGKINS - RECENT DX (REASON FOR PROCEDURE) Wheezing REASON FOR INHALER Surgical History H/O foot surgery RT FOOT "TOES STRAIGHTENED" H/O lymph node biopsy H/O tubal ligation In her 30's History of appendectomy In her 20's History of colonoscopy History of esophagogastroduodenoscopy (EGD) History of laparoscopic cholecystectomy History of tooth extraction Port-A-Cath in place (02/01/20) Insertion of Mediport with Fluoroscopy, Left Subclavian Dr. Mead 02-01-20 Family History Mother Diabetes Heart disease Hypertension Father Heart disease Hypertension Social History Smoking Status: Former smoker Tobacco Type: Cigarettes Second Hand Exposure: No; Hx Alcohol Use: No Hx Substance Use: No Preferred Language: Kinyarwanda Communication Ability: Effective Family Medicine Physician Required: No Beliefs That Will Affect Care: None marital status: / Current Living Situation: Alone current occupational status: employed current occupation: [employer] Feels Safe at Home: Yes Assistive Devices: None Allergies Allergies Allergy/AdvReac Type Severity Reaction Status Date / Time lisinopril Allergy Severe FACIAL AND Verified 02/01/21 09:30 THROAT SWELLING Home Meds Home Medications Medication Instructions Recorded Confirmed diltiazem HCl 120 mg 120 mg PO QAM 01/16/20 02/01/21 capsule,extended release 24 hr furosemide 40 mg tablet 40 mg PO QAM 01/16/20 02/01/21 montelukast 10 mg tablet 10 mg PO QAM 01/16/20 02/01/21 potassium chloride 20 mEq 20 meq PO QAM 01/16/20 02/01/21 tablet,extended release(part/cryst) metoprolol succinate 50 mg PO QAM 01/25/21 02/01/21 omega 1-nry-rso-fish oil [Fish Oil] 2 cap PO QAM 01/25/21 02/01/21 prednisone 100 mg PO DAILY PRN 01/27/21 02/01/21 prochlorperazine maleate 10 mg PO Q6H PRN 01/27/21 02/01/21 Previous Rx's Medication Instructions Recorded cefdinir 300 mg PO BID #12 cap 01/28/21 dexamethasone 6 mg PO DAILY #3 tab 01/28/21 Results & Data (ED) Vital Signs Vital Signs - 24 hr 02/01/21 08:41 02/01/21 09:08 02/01/21 09:26 Temperature 36.5 C Temperature Source Skin Pulse Rate 77 101 H 96 H Pulse Rate from SpO2 Sensor 91 H 92 H Pulse Rhythm Regular Pulse Strength Normal Respiratory Rate 20 19 17 Respiratory Effort / Characteristics Non-Labored Spontaneous Respiratory Depth Normal Respiratory Pattern Regular Blood Pressure 123/83 128/76 115/69 Blood Pressure Mean 96 93 84 Pulse Oximetry 97 95 95 Oxygen Delivery Method Room Air Sepsis Recent Fever Within 48 Hours No Sepsis New/Unexplained Change in Mental Status N/A Sepsis Action Taken by Nursing No Action Required 02/01/21 09:30 02/01/21 10:00 02/01/21 10:15 Temperature Temperature Source Pulse Rate 128 H 91 H 85 Pulse Rate from SpO2 Sensor 100 H 88 84 Pulse Rhythm Pulse Strength Respiratory Rate 18 20 18 Respiratory Effort / Characteristics Respiratory Depth Respiratory Pattern Blood Pressure 130/75 121/95 114/81 Blood Pressure Mean 93 103 92 Pulse Oximetry 95 94 96 Oxygen Delivery Method Sepsis Recent Fever Within 48 Hours Sepsis New/Unexplained Change in Mental Status Sepsis Action Taken by Nursing 02/01/21 10:24 02/01/21 10:30 02/01/21 10:45 Temperature Temperature Source Pulse Rate 88 89 Pulse Rate from SpO2 Sensor 84 86 Pulse Rhythm Pulse Strength Respiratory Rate 21 19 Respiratory Effort / Characteristics Respiratory Depth Respiratory Pattern Blood Pressure 119/79 130/73 Blood Pressure Mean 92 92 Pulse Oximetry 96 95 95 Oxygen Delivery Method Room Air Sepsis Recent Fever Within 48 Hours Sepsis New/Unexplained Change in Mental Status Sepsis Action Taken by Nursing 02/01/21 11:00 02/01/21 11:15 02/01/21 11:30 Temperature Temperature Source Pulse Rate 84 77 83 Pulse Rate from SpO2 Sensor 87 83 76 Pulse Rhythm Pulse Strength Respiratory Rate 23 21 19 Respiratory Effort / Characteristics Respiratory Depth Respiratory Pattern Blood Pressure 113/73 126/71 137/84 Blood Pressure Mean 86 89 101 Pulse Oximetry 94 96 96 Oxygen Delivery Method Sepsis Recent Fever Within 48 Hours Sepsis New/Unexplained Change in Mental Status Sepsis Action Taken by Nursing 02/01/21 11:46 02/01/21 12:27 Temperature Temperature Source Pulse Rate 85 79 Pulse Rate from SpO2 Sensor 91 H 82 Pulse Rhythm Pulse Strength Respiratory Rate 21 19 Respiratory Effort / Characteristics Respiratory Depth Respiratory Pattern Blood Pressure 191/98 H 118/67 Blood Pressure Mean 129 84 Pulse Oximetry 95 94 Oxygen Delivery Method Sepsis Recent Fever Within 48 Hours Sepsis New/Unexplained Change in Mental Status Sepsis Action Taken by Nursing Laboratory Data Result diagrams: 02/01/21 09:03 02/01/21 09:03 Lab Results 02/01/21 02/01/21 02/01/21 Range/Units 09:03 09:03 09:03 WBC 6.08 (4.8-10.8) K/uL RBC 3.49 L (4.2-5.4) M/uL Hgb 11.8 L (12.0-16.0) g/dL Hct 33.7 L (37-47) % MCV 96.6 (80-100) fL MCH 33.8 (25-34) pg MCHC 35.0 (32-36) g/dL RDW Std Deviation 55.3 H (36.4-46.3) fL RDW Coeff of [place] 15.7 H (11.5-14.5) % Plt Count 222 (130-400) K/uL MPV 10.2 (7.4-10.4) fL Immature Gran % (Auto) 0.5 % Neut % (Auto) 78.7 % Lymph % (Auto) 13.7 % [place] % (Auto) 6.9 % Eos % (Auto) 0.0 % Baso % (Auto) 0.2 % Neut # (Auto) 4.79 (1.4-6.5) K/uL Lymph # (Auto) 0.83 L (1.2-3.4) K/uL [place] # (Auto) 0.42 (0.11-0.59) K/uL Eos # (Auto) 0.00 (0-0.5) K/uL Baso # (Auto) 0.01 (0-0.2) K/uL Immature Gran # (Auto) 0.03 H (0.00-0.02) K/uL PT 10.3 (9.0-12.0) Seconds INR 1.0 (0.9-1.1) Sodium 135 L (136-145) mmol/L Potassium 3.4 L (3.5-5.1) mmol/L Chloride 103 (98-107) mmol/L Carbon Dioxide 23 (21-32) mmol/L Anion Gap 9.0 (3-11) BUN 15 (7-18) mg/dl Creatinine 0.93 (0.6-1.2) mg/dl Est Cr Clr Drug Dosing 63.5 ml/min Est GFR ( Amer) 71.2 Est GFR (Non-Af Amer) 61.4 BUN/Creatinine Ratio 16.2 (10-20) Glucose 105 H (70-99) mg/dl Calcium 8.4 L (8.5-10.1) mg/dl Ionized Calcium (1.12-1.32) mmol/L Magnesium (1.8-2.4) mg/dl Total Bilirubin 0.7 (0.2-1) mg/dl AST 75 H (15-37) U/L ALT 104 H (12-78) U/L Alkaline Phosphatase 136 H (45-117) U/L Troponin I 0.024 (0-0.045) ng/ml Total Protein 6.8 (6.4-8.2) gm/dl Albumin 3.6 (3.4-5.0) gm/dl Globulin 3.2 (2.5-4.0) gm/dl Albumin/Globulin Ratio 1.1 (0.9-2) TSH 7.240 H (0.300-4.500) uIu/ml Free T4 1.22 (0.8-1.6) ng/dl Random Cortisol mcg/dl Urine Color Urine Appearance (Clear) Urine pH (4.5-7.5) Ur Specific [place] (1.000-1.030) Urine Protein (Negative) Urine Glucose (UA) (Negative) Urine Ketones (Negative) Urine Blood (Negative) Urine Nitrite (Negative) Urine Bilirubin (Negative) Urine Urobilinogen (Negative) Ur Leukocyte Esterase (Negative) Urine WBC (Auto) (0-5) /hpf Urine RBC (Auto) (0-4) /hpf U Hyaline Cast (Auto) (0-5) /lpf U Epithel Cells (Auto) (0-5) /lpf Urine Bacteria (Auto) (Negative) 02/01/21 02/01/21 02/01/21 Range/Units 09:03 09:03 09:03 WBC (4.8-10.8) K/uL RBC (4.2-5.4) M/uL Hgb (12.0-16.0) g/dL Hct (37-47) % MCV (80-100) fL MCH (25-34) pg MCHC (32-36) g/dL RDW Std Deviation (36.4-46.3) fL RDW Coeff of [place] (11.5-14.5) % Plt Count (130-400) K/uL MPV (7.4-10.4) fL Immature Gran % (Auto) % Neut % (Auto) % Lymph % (Auto) % [place] % (Auto) % Eos % (Auto) % Baso % (Auto) % Neut # (Auto) (1.4-6.5) K/uL Lymph # (Auto) (1.2-3.4) K/uL [place] # (Auto) (0.11-0.59) K/uL Eos # (Auto) (0-0.5) K/uL Baso # (Auto) (0-0.2) K/uL Immature Gran # (Auto) (0.00-0.02) K/uL PT (9.0-12.0) Seconds INR (0.9-1.1) Sodium (136-145) mmol/L Potassium (3.5-5.1) mmol/L Chloride (98-107) mmol/L Carbon Dioxide (21-32) mmol/L Anion Gap (3-11) BUN (7-18) mg/dl Creatinine (0.6-1.2) mg/dl Est Cr Clr Drug Dosing ml/min Est GFR ( Amer) Est GFR (Non-Af Amer) BUN/Creatinine Ratio (10-20) Glucose (70-99) mg/dl Calcium (8.5-10.1) mg/dl Ionized Calcium (1.12-1.32) mmol/L Magnesium 2.2 (1.8-2.4) mg/dl Total Bilirubin (0.2-1) mg/dl AST (15-37) U/L ALT (12-78) U/L Alkaline Phosphatase (45-117) U/L Troponin I (0-0.045) ng/ml Total Protein (6.4-8.2) gm/dl Albumin (3.4-5.0) gm/dl Globulin (2.5-4.0) gm/dl Albumin/Globulin Ratio (0.9-2) TSH (0.300-4.500) uIu/ml Free T4 (0.8-1.6) ng/dl Random Cortisol 4.09 mcg/dl Urine Color Yellow Urine Appearance Clear (Clear) Urine pH 8.0 H (4.5-7.5) Ur Specific [place] 1.011 (1.000-1.030) Urine Protein 2+ H (Negative) Urine Glucose (UA) Negative (Negative) Urine Ketones Negative (Negative) Urine Blood Negative (Negative) Urine Nitrite Negative (Negative) Urine Bilirubin Negative (Negative) Urine Urobilinogen Negative (Negative) Ur Leukocyte Esterase Negative (Negative) Urine WBC (Auto) 1-5 (0-5) /hpf Urine RBC (Auto) 0-4 (0-4) /hpf U Hyaline Cast (Auto) 10-30 H (0-5) /lpf U Epithel Cells (Auto) >30 H (0-5) /lpf Urine Bacteria (Auto) Negative (Negative) 02/01/21 Range/Units 12:11 WBC (4.8-10.8) K/uL RBC (4.2-5.4) M/uL Hgb (12.0-16.0) g/dL Hct (37-47) % MCV (80-100) fL MCH (25-34) pg MCHC (32-36) g/dL RDW Std Deviation (36.4-46.3) fL RDW Coeff of [place] (11.5-14.5) % Plt Count (130-400) K/uL MPV (7.4-10.4) fL Immature Gran % (Auto) % Neut % (Auto) % Lymph % (Auto) % [place] % (Auto) % Eos % (Auto) % Baso % (Auto) % Neut # (Auto) (1.4-6.5) K/uL Lymph # (Auto) (1.2-3.4) K/uL [place] # (Auto) (0.11-0.59) K/uL Eos # (Auto) (0-0.5) K/uL Baso # (Auto) (0-0.2) K/uL Immature Gran # (Auto) (0.00-0.02) K/uL PT (9.0-12.0) Seconds INR (0.9-1.1) Sodium (136-145) mmol/L Potassium (3.5-5.1) mmol/L Chloride (98-107) mmol/L Carbon Dioxide (21-32) mmol/L Anion Gap (3-11) BUN (7-18) mg/dl Creatinine (0.6-1.2) mg/dl Est Cr Clr Drug Dosing ml/min Est GFR ( Amer) Est GFR (Non-Af Amer) BUN/Creatinine Ratio (10-20) Glucose (70-99) mg/dl Calcium (8.5-10.1) mg/dl Ionized Calcium 1.02 L (1.12-1.32) mmol/L Magnesium (1.8-2.4) mg/dl Total Bilirubin (0.2-1) mg/dl AST (15-37) U/L ALT (12-78) U/L Alkaline Phosphatase (45-117) U/L Troponin I (0-0.045) ng/ml Total Protein (6.4-8.2) gm/dl Albumin (3.4-5.0) gm/dl Globulin (2.5-4.0) gm/dl Albumin/Globulin Ratio (0.9-2) TSH (0.300-4.500) uIu/ml Free T4 (0.8-1.6) ng/dl Random Cortisol mcg/dl Urine Color Urine Appearance (Clear) Urine pH (4.5-7.5) Ur Specific [place] (1.000-1.030) Urine Protein (Negative) Urine Glucose (UA) (Negative) Urine Ketones (Negative) Urine Blood (Negative) Urine Nitrite (Negative) Urine Bilirubin (Negative) Urine Urobilinogen (Negative) Ur Leukocyte Esterase (Negative) Urine WBC (Auto) (0-5) /hpf Urine RBC (Auto) (0-4) /hpf U Hyaline Cast (Auto) (0-5) /lpf U Epithel Cells (Auto) (0-5) /lpf Urine Bacteria (Auto) (Negative) Administered Medications Apixaban (Apixaban 2.5 Mg Tab) 5 mg PO BID ZOË Stop: 03/03/21 12:14 Last Admin: 02/01/21 12:28 Dose: 5 mg Documented by: [id number] Diltiazem HCl (Diltiazem Hcl 120 Mg Capcr) 120 mg PO QAM ZOË Stop: 03/03/21 11:59 Last Admin: 02/01/21 12:28 Dose: 120 mg Documented by: [id number] Metoprolol Succinate (Metoprolol Succ 50mg Ext Rel Tab) 50 mg PO QAM [facility] Stop: 03/03/21 11:59 Last Admin: 02/01/21 12:28 Dose: 50 mg Documented by: [id number] Potassium Chloride (Potassium Chloride Crtab 20 Meq Tabcr) 20 meq PO QAM ZOË Stop: 03/03/21 11:59 Last Admin: 02/01/21 12:27 Dose: 20 meq Documented by: [id number] Discontinued Medications Diltiazem HCl (Diltiazem Hcl 5 Mg/Ml 5 Ml Vial) 10 mg IV NOW STA Stop: 02/01/21 09:13 Last Admin: 02/01/21 09:17 Dose: Not Given Documented by: [id number] Sodium Chloride (Nss) 500 mls @ 999 mls/hr IV .Q31M ZOË Stop: 02/01/21 09:45 Last Infusion: 02/01/21 09:44 Dose: 0 mls/hr Documented by: [id number] Admin: 02/01/21 09:13 Dose: 999 mls/hr Documented by: [id number] Diltiazem HCl 125 mg/ Dextrose 125 mls @ 5 mls/hr IV .Q24H ZOË; Protocol Stop: 03/03/21 09:14 Last Titration: 02/01/21 12:45 Dose: 0 mg/hr, 0 mls/hr Documented by: [id number] Cosigned by: [id number] Admin: 02/01/21 10:07 Dose: 5 mg/hr, 5 mls/hr Documented by: [id number] Cosigned by: [id number] Miscellaneous (Stat Iv Infusion Titration Per Protocol) 1 ea N/A NOW STA Stop: 02/01/21 09:13 Last Admin: 02/01/21 10:07 Dose: Not Given Documented by: [id number] Discharge Plan Visit Data Chief Complaint: Urinary Symptoms Stated Complaint: COVID+ - CHEMO PT - ONGOING UTI ISSUES ED Provider: Shun Laboy Discharge Problem: Atrial fibrillation with rapid ventricular response, COVID-19, Acute UTI (urinary tract infection) Forms Stand Alone Forms: [facility] [employer] Prescriptions Prescriptions: No Action potassium chloride [Klor-Con M20] 20 mEq tablet,ER particles/crystals 20 meq PO QAM RF: 0 diltiazem HCl 120 mg capsule,extended release 24hr 120 mg PO QAM RF: 0 montelukast 10 mg tablet 10 mg PO QAM RF: 0 furosemide 40 mg tablet 40 mg PO QAM RF: 0 prednisone 20 mg tablet 100 mg PO DAILY PRN (Reason: Chemo Treatments) RF: 0 prochlorperazine maleate 10 mg tablet 10 mg PO Q6H PRN (Reason: Nausea) RF: 0 cefdinir 300 mg capsule 300 mg PO BID Qty: 12 RF: 0 dexamethasone 6 mg tablet 6 mg PO DAILY Qty: 3 RF: 0 metoprolol succinate 50 mg tablet extended release 24 hr 50 mg PO QAM RF: 0 omega 7-yqn-zhf-fish oil [Fish Oil] 1,200 (144-216) mg Capsule 2 cap PO QAM RF: 0
[2021-02-01] MEDS ORDERED: SODIUM CHLORIDE 0.9% 500 ML IV SCH (09:15)
[2021-02-01] MEDS ORDERED: dilTIAZem HCL 125 MG in DEXTROSE 5% 100 ML IV SCH (09:15)
[2021-02-01 09:29] LABS: Basophils # (auto) 0.01 K/uL (0-0.2); Basophils % (auto) 0.2 %; Hematocrit (blood only) 33.7 % (37-47); Hemoglobin 11.8 g/dL (12.0-16.0); Immature Granulocytes # (auto) 0.03 K/uL (0.00-0.02); Immature Granulocytes % (auto) 0.5 %; Lymphocytes # (auto) 0.83 K/uL (1.2-3.4); Lymphocytes % (auto) 13.7 %; Mean Corpuscular Hemoglobin 33.8 pg (25-34); Mean Corpuscular Volume 96.6 fL (80-100); Mean Platelet Volume 10.2 fL (7.4-10.4); Monocytes # (auto) 0.42 K/uL (0.11-0.59); Monocytes % (auto) 6.9 %; Neutrophils # (auto) 4.79 K/uL (1.4-6.5); Neutrophils % (auto) 78.7 %; Platelet Count 222 K/uL (130-400); RDW Coefficient of Variation 15.7 % (11.5-14.5); RDW Standard Deviation 55.3 fL (36.4-46.3); Red Blood Count 3.49 M/uL (4.2-5.4); White Blood Count 6.08 K/uL (4.8-10.8)
[2021-02-01 09:32] LABS: Appearance Urine Clear (Clear); Bacteria Urine Automated Negative (Negative); Bilirubin Urine Negative (Negative); Blood Urine Negative (Negative); Color Urine Yellow; Epithelial Cell Urine Auto >30 /lpf (0-5); Glucose Urine UA Negative (Negative); Ketones Urine Negative (Negative); Leukocyte Esterase Urine Negative (Negative); Nitrite Urine Negative (Negative); RBC Urine Automated 0-4 /hpf (0-4); Specific Gravity Urine 1.011 (1.000-1.030); Urobilinogen Urine Negative (Negative)
[2021-02-01 09:39] LABS: Protein Urine 2+ (Negative)
[2021-02-01 09:40] LABS: Prothrombin Time 10.3 Seconds (9.0-12.0)
--- NOTE | 2021-02-01 09:45 | XRay Report ---
XR chest 1V portable HISTORY: weakness COMPARISON: 01/27/2021. FINDINGS: No pneumothorax. No pleural effusions. The left subclavian Port-A-Cath which range in the S VC. The heart remains borderline enlarged. The upper lung zones are clear. Hazy bibasilar airspace op acities have improved. Mild emphysema. IMPRESSION: Improvement in the hazy bibasilar airspace opacities suggesting a resolving pneumonia. ACT 112: Negative or not required by law. Electronically signed by: Anand Navarro M.D. 02/01/2021 9:44 AM
[2021-02-01 09:48] LABS: Albumin Level 3.6 gm/dl (3.4-5.0); BUN Creatinine Ratio 16.2 (10-20); Calcium 8.4 mg/dl (8.5-10.1); Creatinine Clr Calc Pharmacy 63.5 ml/min; Est GFR (African American) 71.2; Est GFR (Non-African American) 61.4; Potassium 3.4 mmol/L (3.5-5.1)
[2021-02-01 09:59] LABS: Albumin Globulin Ratio 1.1 (0.9-2); Bilirubin,Total 0.7 mg/dl (0.2-1); Globulin 3.2 gm/dl (2.5-4.0); Thyroid Stimulating Hormone 7.24 uIu/ml (0.300-4.500); Total Protein 6.8 gm/dl (6.4-8.2); Troponin I 0.024 ng/ml (0-0.045)
[2021-02-01 10:11] LABS: T4 Free Thyroxine 1.22 ng/dl (0.8-1.6)
[2021-02-01] MEDS ORDERED: METOPROLOL TARTRATE 1 MG/ML VIAL IV PRN (12:20)
[2021-02-01] MEDS: POTASSIUM CHLORIDE CRTAB 20 MEQ TABCR PO SCH (12:27)
[2021-02-01] MEDS: dilTIAZem HCL 120 MG CAPCR PO SCH (12:28)
[2021-02-01] MEDS: METOPROLOL SUCC 50MG EXT REL TAB PO SCH (12:28)
[2021-02-01] MEDS: APIXABAN 2.5 MG TAB PO SCH ×2 (12:28→23:09)
--- NOTE | 2021-02-01 12:30 | History & Physical Report ---
Date of Service February 01, 2021 Assessment & Plan (1) Afib: Patient with new onset afib, unknown onset. Last ECG [id number] with NSR. - Patient currently rate controlled, will give oral Metoprolol succinate 50mg and Diltiazem ER 120; then discontinue drip - PRN Lopressor 5mg IV for rate >120 - If needed for rate control can increase oral doses of Metoprolol and/or Diltiazem - Electrolytes pending, goal K- 4.0, Mag >2.0, iCA >1.12- Replete as needed - PCU Med telemetry- monitor rate controll - CHADS VASC-1; However goal to offer return to NSR and unknown onset of afib will place Apixaban 5mg PO BID starting now. - Cardiology consulted and have discussed with Dr. Phillips. TSH- 7.2 with normal T4- not on therapy Random Cortisol is pending (2) Obesity: Will check HGB A1c- mild hyperglycemia might have small component of type II insulin resistance - Continue to work up this will change her CHADSVac-2 (3) Acute UTI (urinary tract infection): Urine looks improved will be on Cefdinir until February 06 - Then can discontinue (4) Hypertension: Well controlled - Continue Metoprolol, Diltiazem and Lasix - Will restart Lasix tomorrow to not over diurese with her PO intake decrease - Last EF in Oct 27, EF 50-55% no valve abnormalities - would be worth repeating when 15 days out from COVID infection if remains in a-fib (5) COVID-19: Continue Decadron - Overall was feeling well - Inflammatory markers may still be elevating liver enzymes - Troponin mild at 0.024 and new afib- if hemodynamics come to be effective will definitely obtain an ECHO - Will be on therapeutic Apixaban (6) Non Hodgkin's lymphoma: Was supposed to get CHEMO this past week but was in with COVID-19 Will have to re-coordinate with her oncologist for therapy - Predominantly abodomen and pancreas (7) Elevated liver enzymes: Will get RUQUS- asymptomatic again this may just be inflammatory of COVID and/or her NHL - Trend over hospital stay- right now no acute needs - ALkPO4 chronically elevated as well with her Non Hodkins Lymphoma History of Present Illness Primary Care Provider: William Gray 70 YOF with past medical history of COVID-19 ([id number]) discharged on [id number], UTI, HTN, obesity, Non-Hodgkin lymphoma on cyclic therapy (did not get her therapy last week). She was discharged home on cefdinir and oral dexame thasone and was feeling well except for the past 2 days, she came to the emergency room for generalized of unwell feeling and was noted to be in atrial fibrillation with HR 120 where she was started on a diltiazem drip with no bolus. The medicine team was notified for admission. On my evaluation, the patient is in afib, in the 70-80's with no ectopy. She has not taken any of her oral medications today. Generally the patient states she felt well upon discharge and two days ago started feeling tired and run down and "can't explain it, just feel blah". She has noted decrease intake in food, but has been trying to stay hydrated. She denies any fevers or chills, shortness of breath, abdominal pain, chest pain, leg pain. Patient will be admitted for monitoring on telemetry. Electrolytes are pending. Will give her oral medications now and stop her diltiazem drip admit to PCU telemetry. Allergies Allergy/AdvReac Type Severity Reaction Status Date / Time lisinopril Allergy Severe FACIAL AND Verified 02/01/21 09:30 THROAT SWELLING Home Medications Medication Instructions Recorded Confirmed Type diltiazem HCl 120 mg 120 mg PO QAM 01/16/20 02/01/21 History capsule,extended release 24 hr furosemide 40 mg tablet 40 mg PO QAM 01/16/20 02/01/21 History montelukast 10 mg tablet 10 mg PO QAM 01/16/20 02/01/21 History potassium chloride 20 mEq 20 meq PO QAM 01/16/20 02/01/21 History tablet,extended release(part/cryst) metoprolol succinate 50 mg PO QAM 01/25/21 02/01/21 History omega 1-kdb-nch-fish oil [Fish Oil] 2 cap PO QAM 01/25/21 02/01/21 History prednisone 100 mg PO DAILY PRN 01/27/21 02/01/21 History prochlorperazine maleate 10 mg PO Q6H PRN 01/27/21 02/01/21 History cefdinir 300 mg PO BID #12 cap 01/28/21 02/01/21 Rx dexamethasone 6 mg PO DAILY #3 tab 01/28/21 02/01/21 Rx Past Med/Surg History Medical History GERD (gastroesophageal reflux disease) "MILD" Hyperlipidemia Hypertension Lymphoma NON HODGKINS - RECENT DX (REASON FOR PROCEDURE) Wheezing REASON FOR INHALER Surgical History H/O foot surgery RT FOOT "TOES STRAIGHTENED" H/O lymph node biopsy H/O tubal ligation In her 30's History of appendectomy In her 20's History of colonoscopy History of esophagogastroduodenoscopy (EGD) History of laparoscopic cholecystectomy History of tooth extraction Port-A-Cath in place (02/01/20) Insertion of Mediport with Fluoroscopy, Left Subclavian Dr. 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 [employer] Other Information That Helps Us Care for You: No Feels Safe at Home: Yes Safety Concerns: Feels Safe At This Time Assistive Devices: None Review of Systems Review of Systems: REVIEW OF SYSTEMS: Constitutional: (+) feeling unwell, No fever, sweats or chills, Eyes: No diplopia, no worsening or blurred vision ENT: normal hearing, no trouble swallowing Respiratory: (+) cough, (-) sputum, dyspnea at rest or on exertion Cardiovascular: No chest pain, tightness or palpitations Abdomen: No pain, nausea, vomiting, diarrhea or constipation Musculoskeletal: No joint pain, calf pain, swelling Neurologic: No weakness, numbness/tingling, or balance problems Psychiatric: No anxiety or depression Skin: No rash or itch Physical Exam Physical Exam: PHYSICAL EXAM: General: awake, alert, no apparent distress Head: Normocephalic, atraumatic ENT: PERRL, EOMI, no pharyngeal exudate, mucous membranes moist Neuro: AAO x 3, speech clear and appropriate, strength intact bilaterally 5/5, sensation intact and equal all extremities and dermatomes, no pronator drift Chest: equal rise and fall of the chest, no accessory muscle use, no heaves or thirlls, Clear to auscultation, on room air, Cardiac: irregular rate and rhythm, telemetry reviewed, skin warm dry, cap refill <3 seconds, peripheral pulses +2 no JVD, no murmur, no edema GI: NABS x 4 quadrants, soft, nontender to palpation, no rebound, guarding or tenderness : Spontaneously voiding, no pain, no CVA tenderness, Extremities: Normal inspection, no peripheral edema or erythema, calfs nontender to palpation Psych: Normal mood and affect Skin: no rash or erythema Results & Data Results & Data ([facility]) Vital Signs (Past 12 Hours) Vital Signs Temp Pulse Resp BP Pulse Ox 02/01/21 11:46 85 21 191/98 H 95 02/01/21 11:30 83 19 137/84 96 02/01/21 11:15 77 21 126/71 96 02/01/21 11:00 84 23 113/73 94 02/01/21 10:45 89 19 130/73 95 02/01/21 10:30 88 21 119/79 95 02/01/21 10:24 96 02/01/21 10:15 85 18 114/81 96 02/01/21 10:00 91 H 20 121/95 94 02/01/21 09:30 128 H 18 130/75 95 02/01/21 09:26 96 H 17 115/69 95 02/01/21 09:08 101 H 19 128/76 95 02/01/21 08:41 36.5 C 77 20 123/83 97 Laboratory Results Abnormal lab results 02/01/21 02/01/21 02/01/21 Range/Units 09:03 09:03 09:03 RBC 3.49 L (4.2-5.4) M/uL Hgb 11.8 L (12.0-16.0) g/dL Hct 33.7 L (37-47) % RDW Std Deviation 55.3 H (36.4-46.3) fL RDW Coeff of [place] 15.7 H (11.5-14.5) % Lymph # (Auto) 0.83 L (1.2-3.4) K/uL Immature Gran # (Auto) 0.03 H (0.00-0.02) K/uL Sodium 135 L (136-145) mmol/L Potassium 3.4 L (3.5-5.1) mmol/L Glucose 105 H (70-99) mg/dl Calcium 8.4 L (8.5-10.1) mg/dl AST 75 H (15-37) U/L ALT 104 H (12-78) U/L Alkaline Phosphatase 136 H (45-117) U/L TSH 7.240 H (0.300-4.500) uIu/ml Urine pH 8.0 H (4.5-7.5) Urine Protein 2+ H (Negative) U Hyaline Cast (Auto) 10-30 H (0-5) /lpf U Epithel Cells (Auto) >30 H (0-5) /lpf Diagnostic Findings XR chest 1V portable HISTORY: weakness COMPARISON: 01/27/2021. FINDINGS: No pneumothorax. No pleural effusions. The left subclavian Port-A-Cath which range in the SVC. The heart remains borderline enlarged. The upper lung zones are clear. Hazy bibasilar airspace opacities have improved. Mild emphysema. IMPRESSION: Improvement in the hazy bibasilar airspace opacities suggesting a resolving pneumonia. Medications Administered Apixaban (Apixaban 2.5 Mg Tab) 5 mg PO BID [facility] Stop: 03/03/21 12:14 Last Admin: 02/01/21 12:28 Dose: 5 mg Documented by: [id number] Diltiazem HCl (Diltiazem Hcl 120 Mg Capcr) 120 mg PO QAM ZOË Stop: 03/03/21 11:59 Last Admin: 02/01/21 12:28 Dose: 120 mg Documented by: [id number] Metoprolol Succinate (Metoprolol Succ 50mg Ext Rel Tab) 50 mg PO QAM [facility] Stop: 03/03/21 11:59 Last Admin: 02/01/21 12:28 Dose: 50 mg Documented by: [id number] Potassium Chloride (Potassium Chloride Crtab 20 Meq Tabcr) 20 meq PO QAM [facility] Stop: 03/03/21 11:59 Last Admin: 02/01/21 12:27 Dose: 20 meq Documented by: [id number] Discontinued Medications Diltiazem HCl (Diltiazem Hcl 5 Mg/Ml 5 Ml Vial) 10 mg IV NOW STA Stop: 02/01/21 09:13 Last Admin: 02/01/21 09:17 Dose: Not Given Documented by: [id number] Sodium Chloride (Nss) 500 mls @ 999 mls/hr IV .Q31M ZOË Stop: 02/01/21 09:45 Last Infusion: 02/01/21 09:44 Dose: 0 mls/hr Documented by: [id number] Admin: 02/01/21 09:13 Dose: 999 mls/hr Documented by: [id number] Diltiazem HCl 125 mg/ Dextrose 125 mls @ 5 mls/hr IV .Q24H [facility]; Protocol Stop: 03/03/21 09:14 Last Admin: 02/01/21 10:07 Dose: 5 mg/hr, 5 mls/hr Documented by: [id number] Cosigned by: [id number] Miscellaneous (Stat Iv Infusion Titration Per Protocol) 1 ea N/A NOW STA Stop: 02/01/21 09:13 Last Admin: 02/01/21 10:07 Dose: Not Given Documented by: [id number] Home Medications diltiazem HCl 120 mg capsule,extended release 24 hr 120 mg PO QAM 01/16/20 [History Confirmed 02/01/21] furosemide 40 mg tablet 40 mg PO QAM 01/16/20 [History Confirmed 02/01/21] montelukast 10 mg tablet 10 mg PO QAM 01/16/20 [History Confirmed 02/01/21] potassium chloride 20 mEq tablet,extended release(part/cryst) 20 meq PO QAM 01/16/20 [History Confirmed 02/01/21] metoprolol succinate 50 mg PO QAM 01/25/21 [History Confirmed 02/01/21] omega 4-iiy-vbl-fish oil [Fish Oil] 2 cap PO QAM 01/25/21 [History Confirmed 02/01/21] prednisone 100 mg PO DAILY PRN 01/27/21 [History Confirmed 02/01/21] prochlorperazine maleate 10 mg PO Q6H PRN 01/27/21 [History Confirmed 02/01/21] cefdinir 300 mg PO BID #12 cap 01/28/21 [Rx Confirmed 02/01/21] dexamethasone 6 mg PO DAILY #3 tab 01/28/21 [Rx Confirmed 02/01/21] Active Medications Apixaban (Apixaban 2.5 Mg Tab) 5 mg PO BID [facility] Stop: 03/03/21 12:14 Last Admin: 02/01/21 12:28 Dose: 5 mg Documented by: Diltiazem HCl (Diltiazem Hcl 120 Mg Capcr) 120 mg PO QAM [facility] Stop: 03/03/21 11:59 Last Admin: 02/01/21 12:28 Dose: 120 mg Documented by: Metoprolol Succinate (Metoprolol Succ 50mg Ext Rel Tab) 50 mg PO QAM [facility] Stop: 03/03/21 11:59 Last Admin: 02/01/21 12:28 Dose: 50 mg Documented by: Metoprolol Tartrate (Metoprolol Tartrate 1 Mg/Ml Vial) 5 mg IV Q4 PRN PRN Reason: HR >120 afib/flutter Stop: 03/03/21 12:19 Potassium Chloride (Potassium Chloride Crtab 20 Meq Tabcr) 20 meq PO QAM [facility] Stop: 03/03/21 11:59 Last Admin: 02/01/21 12:27 Dose: 20 meq Documented by: ECG Additional Comments: Atrial fibrillation with rapid ventricular response with premature ventricular or aberrantly conducted complexes Nonspecific ST and T wave abnormality Abnormal ECG When compared with ECG of 27-JAN-2021 10:45, Atrial fibrillation has replaced Sinus rhythm Code Status & VTE Plan Code Status CODE: FULL VTE: SCD's, Eliquis, ambulation in room VTE Prophylaxis Plan VTE Prophylaxis will be ordered: Yes Supervising Physician Co-Signing Physician Notes Patient was seen and examined independently I discussed the case with Gigi ZELAYA I reviewed pertinent past medical social family history and also the plan of care and agree with the plan of care. Pt recently discharged from [facility] admission, still in time to require airborne isolation, will need to treat afib for rate control and start anticoagulation with apixiban, metoprolol added to diltiazem, may consider to streamline to one dose physical exam show rates in low 100's irregular on monitor, cardiac exam is irregular, lungs are clear complete uti treatment course covid airborne precautions Any exceptions will be noted below PG Care Time/CCT Total # of Minutes Spent Total Time Spent with Patient: Total time spent is greater than 50% in coordination of care (as documented) at patient's floor/unit and/or counseling patient: Coding Level of Care Code 17707 Initial Inpt Care Lvl 3 Diagnoses Afib I48.91 Atrial fibrillation type: unspecified Obesity E66.9; Z68.38 Body mass index: BMI 38.0-38.9 Obesity classification: adult class 2 (BMI 35 - 39.9) Obesity type: unspecified obesity type Serious obesity comorbidity presence: without serious comorbidity Acute UTI (urinary tract infection) N39.0 Hypertension I10 Hypertension type: essential hypertension COVID-19 U07.1 Non Hodgkin's lymphoma C82.93 Follicular lymphoma type: unspecified follicular type Lymphoma site: intra-abdominal nodes Non-Hodgkin lymphoma type: follicular Elevated liver enzymes R74.8 (1) Non Hodgkin's lymphoma Follicular lymphoma type: unspecified follicular type Lymphoma site: intra- abdominal nodes Non-Hodgkin lymphoma type: follicular Qualified Code(s): C82.93 - Follicular lymphoma, unspecified, intra-abdominal lymph nodes (2) Afib Atrial fibrillation type: unspecified Qualified Code(s): I48.91 - Unspecified atrial fibrillation (3) Hypertension Hypertension type: essential hypertension Qualified Code(s): I10 - Essential (primary) hypertension (4) Obesity Body mass index: BMI 38.0-38.9 Obesity classification: adult class 2 (BMI 35 - 39.9) Obesity type: unspecified obesity type Serious obesity comorbidity presence: without serious comorbidity Qualified Code(s): E66.9 - Obesity, unspecified; Z68.38 - Body mass index [BMI] 38.0-38.9, adult
[2021-02-01] MEDS ORDERED: CALCIUM GLUCONATE 10% 2,000 MG in SODIUM CHLORIDE 0.9% 50 ML IV ONE (12:47)
[2021-02-01] MEDS ORDERED: POTASSIUM CHLORIDE CRTAB 20 MEQ TABCR PO STA (12:47)
--- NOTE | 2021-02-01 13:25 | Electrocardiogram Report ---
Test Reason : Blood Pressure : / mmHG Vent. Rate : 107 BPM Atrial Rate : 197 BPM P-R Int : 000 ms QRS Dur : 100 ms QT Int : 336 ms P-R-T Axes : 000 000 064 degrees QTc Int : 448 ms Atrial fibrillation with rapid ventricular response with premature ventricular or aberrantly conducte d complexes Nonspecific ST and T wave abnormality Abnormal ECG When compared with ECG of 27-JAN-2021 10:45, Atrial fibrillation has replaced Sinus rhythm Vent. rate has increased BY 37 BPM Confirmed by Roberto Castorena ([id number]) on 02/01/2021 1:25:12 PM Referred By: REFERRED SELF Confirmed By:Roberto Castorena
--- NOTE | 2021-02-01 14:31 | Ultrasound Report ---
ABDOMINAL ULTRASOUND, RIGHT UPPER QUADRANT HISTORY: elevated LFT and ALKpo4. COMPARISON: Abdomen and pelvis CT 10/15/2020. FINDINGS: Pancreas: The pancreas demonstrates a normal echotexture. Liver: 16 cm in length. No hepatic masses. Gallbladder: The gallbladder is surgically absent. CBD: 5 mm. Right kidney: No hydronephrosis. IMPRESSION: 1. Prior cholecystectomy. 2. Normal caliber common bile duct. ACT 112: Negative or not required by law. Electronically signed by: Anand Navarro M.D. 02/01/2021 2:30 PM
[2021-02-01] MEDS ORDERED: ACETAMINOPHEN 325 MG TAB PO PRN (15:58)
[2021-02-01] MEDS ORDERED: POLYETHYLENE (MIRALAX) 17 GM PACK PO PRN (15:58)
[2021-02-01] MEDS ORDERED: ONDANSETRON INJ 2 MG/ML 2 ML VIAL IV PRN (15:58)
[2021-02-01] MEDS ORDERED: PROCHLORPERAZINE MALEATE 10 MG TAB PO PRN (15:58)
[2021-02-01] MEDS: MONTELUKAST SODIUM 10 MG TABLET PO SCH (18:28)
[2021-02-01] MEDS: CEFDINIR 300 MG CAP PO SCH (20:38)
[2021-02-02] MEDS: MONTELUKAST SODIUM 10 MG TABLET PO SCH (08:25)
[2021-02-02] MEDS: CEFDINIR 300 MG CAP PO SCH (08:26)
[2021-02-02] MEDS: APIXABAN 2.5 MG TAB PO SCH (08:27)
[2021-02-02] MEDS: POTASSIUM CHLORIDE CRTAB 20 MEQ TABCR PO SCH (08:32)
[2021-02-02] MEDS: dilTIAZem HCL 120 MG CAPCR PO SCH (08:58)
[2021-02-02] MEDS: METOPROLOL SUCC 50MG EXT REL TAB PO SCH (08:58)
[2021-02-02] MEDS ORDERED: FUROSEMIDE 40 MG TAB PO SCH (09:00)
[2021-02-02] MEDS ORDERED: dexAMETHasone 4 MG TAB PO SCH (09:00)
[2021-02-02] MEDS ORDERED: OMEGA-3 (PURIFIED FISH OIL) 1 GM CAP PO SCH (09:00)
--- NOTE | 2021-02-02 17:44 | Discharge Summary ---
Date of Service February 02, 2021 Admission HPI Per Admitting Provider 70 YOF with past medical history of COVID-19 ([id number]) discharged on [id number], UTI, HTN, obesity, Non-Hodgkin lymphoma on cyclic therapy (did not get her therapy last week). She was discharged home on cefdinir and oral dexamethasone and was feeling well except for the past 2 days, she came to the emergency room for generalized of unwell feeling and was noted to be in atrial fibrillation with HR 120 where she was started on a diltiazem drip with no bolus. The medicine team was notified for admission. On my evaluation, the patient is in afib, in the 70-80's with no ectopy. She has not taken any of her oral medications today. Generally the patient states she felt well upon discharge and two days ago started feeling tired and run down and "can't explain it, just feel blah". She has noted decrease intake in food, but has been trying to stay hydrated. She denies any fevers or chills, shortness of breath, abdominal pain, chest pain, leg pain. Patient will be admitted for monitoring on telemetry. Electrolytes are pending. Will give her oral medications now and stop her diltiazem drip admit to PCU telemetry. Principal Diagnosis New onset atrial fibrillation Discharge Exam In general she is awake and alert pleasant no distress. HEENT normocephalic atraumatic mucous membranes are moist. Breathing unlabored no accessory muscle use good effortshe is on room air. Cardiac shows her to earlier in the day be somewhat tachycardic in A. fib, later in the day adequate rate control at rest, still a little bit tachycardic with exertion. Neuro shows no focal deficits Discharge Data Allergies Allergy/AdvReac Type Severity Reaction Status Date / Time lisinopril Allergy Severe FACIAL AND Verified 02/01/21 09:30 THROAT SWELLING Consultations 02/01/21 10:15 ED Decision to Admit Stat Ordered Studies 02/01/21 11:32 US liver Routine Hospital Course (1) Afib: New onset A. fibRVRrates now overall controlled, she feels fine and really wants to go home. We discussed once he is slightly better rate control with exertion, she is comfortable with self monitoring and following up with PCP, and given that she is asymptomatic with this it appears to be reasonable. Particularly since her resting rate control is now good. Will DC home on diltiazem 120 in the morning, metoprolol XL 70 5 in the evening, and ongoing PCP follow-up. Anticoagulation with apixaban. -Of note due to her still being within a window of being contagious with COVID- 19, echocardiogram was not checked as it was not urgently needed, patient is aware to get an echocardiogram as an outpatient in the next few weeks. Her echo a few months ago was essentially normal, but given that the A. fib is new and the echo has been 3 months, would still recommend repeating. -TSH either reflective of mild hypothyroidism, or more likely euthyroid sick syndrome. Repeat TSH in 4 weeks (2) Obesity: A1c pending Random cortisol low, but of unclear clinical significance. Outpatient follow-up (3) Acute UTI (urinary tract infection): Finish cefdinir (4) Hypertension: Meds for A. fib will suffice for this as well (5) COVID-19: Finish out course of Decadron previously prescribed (6) Non Hodgkin's lymphoma: Outpatient oncology follow-up (7) Elevated liver enzymes: Right upper quadrant ultrasound normal again this may just be inflammatory of COVID and/or her NHL -Outpatient follow-up (8) Discharge planning issues: Stable for home, medications as above, close outpatient PCP follow- upfirst virtually, then [id number]. Patient comfortable checking her pulse and showed proficiency in being able to do so. Total Time Total Time Spent Total Time Spent (In Minutes): Greater than 30 Discharge Plan Discharge Items Patient Disposition: Home - Self-Care Reason For Visit: AFIB NEW ONSET Discharge Diagnosis: atrial fibrillation Activity: Resume your previous activity Non-emergency contact: Primary Care Provider Call non-emergency contact if: you have any medication questions and your symptoms worsen Follow-up/Referrals: William Gray [Primary Care Provider] - Diet: Regular Addtl Attending Provider Instructions: Atrial fibrillation: -To recap what we discussed: Normal cardiac electricity starts in the atria at the sinus node (our natural pacemaker), from there the electricity goes out through wires in the atria to cause the muscle to contract. Because electricity goes far faster than muscle contraction, the electricity gets funneled to a "breaker box" (the AV node) where the electricity is then funneled through wires to the ventricles, causing them to contract. Atrial fibrillation is when the top part of the heart (the atria) quiver rather than milagro. This happens because the electricity that normally goes through "wires" in the atria jumps from cell to cell instead. Because of this, 100 signals a second start to bombard the ventricles. Fortunately the AV node acts as a good filter, so atrial fibrillation does not race at a heart rate of 600 beats a minute, but ve ry commonly can race 150-160 beats a minute. A. fib is fairly common, affecting 5% of the population over 65. For you, this could simply be a "byproduct of your birthday" (meaning that it might just be that the wiring in your atria has started to wear out after 72 years of use). As we discussed, part of the typical work-up for this is an echocardiogram, and while Dr. Dykes obtained one in October, we should repeat one in the near future. It was not done during your hospitalization, because echocardiograms rarely dramatically change advisor of A. fibrather they help clarify potentially why it happenedand her echocardiogram technicians have requested that we not obtain what amounts to routine echoes on patients still contagious with Covid, for understandable reasons. I would look at the timeline for getting the echo done to be in the neighborhood of 2 weeks to 4 weeks from now. Another part of the work-up for atrial fibrillation is to check your thyroid to make sure that overactive thyroid is not causing the heart to beat excessively fast. Your TSH did not show overactive thyroid, but rather was a little bit elevated (implying slightly underactive thyroid)meaning that had nothing to do with the atrial fibrillation. Further, even this mild elevation of TSH was probably a false elevation, as we see that all the time when people are sick with other illnesses. Because of this, I would recommend getting a TSH rechecked in about a month. -Most likely, what happened was that you have an underlying propensity to go into A. fib (mostly because common things are common), and then the physiologic stress of being sick with Covid lead to faster heart rates which then converted over to atrial fibrillation. We see this happen all the time in the hospital, when someone has an illness that would make their heart rate go up for "appropriate" reasons, and then the propensity towards atrial fibrillation kicks in and the rhythm switches over. The main 2 problems that we worry about with atrial fibrillation are controlling heart rate, and preventing strokes ---> Controlling the heart rate is fairly self-explanatory, when the electricity is making the ventricles race, eventually the heart would fatigue. Typically we like to see a goal heart rate at rest of 90 or less (some guidelines would say 110 or less, but most of us are more comfortable with a more reasonable resting heart rate), and reasonable increases with exertion (a bump in your heart rate that fits with how hard you are exerting). At this point we are seeing good rate control at rest, but your heart rates are still bumping up a bit too much when you exert. At discharge we will be increasing your medications a little bit to try to take control of this as well. -Check your heart rate 3-4 times a day, sometimes at rest and sometimes with exertion, so that we can start to get a feel for your overall rate control. If this is difficult, or seems like it is not getting you good information, your PCP can easily order a heart monitor that you would wear at home to follow your rates more accurately. -Sometimes when atrial fibrillation shows up because of other physiologic stress, as that physiologic stress dies down, the medications that we need today may not be totally necessary in a few weeks. You would actually start to notice this first, because you would feel weak/fatigued/lightheaded/woozy/dizzy, or when you are checking your numbers, you would see low heart rates (like less than 60), or low blood pressures. If you are seeing any of this, call your PCP for guidance on reducing doses. -Right now we are needing two medications to control your ratemetoprolol (Toprol-XL) and diltiazem. These are actually medications that you were on previously as well, but we will increase the dose of the metoprolol. Because the metoprolol can be a little bit fatiguing for some people, I would recommend taking it at bedtime, and the diltiazem during the day. ---> Preventing strokes becomes an another important long-term implication with atrial fibrillation -When the atria are quivering instead of milagro, they become a stagnant pond, and in that stagnant pond blood clots can form. When clots formed in the atria, as they flow down to the left ventricle, then they can be squeezed off into the bodywhere the most "direct shot" is up to the brain causing a stroke. Being on a blood thinner almost entirely eliminates this risk. -We have started you on apixaban (Eliquis) because overall it is a very good blood thinner at reducing the risk of stroke with atrial fibrillation. That said, there are several medications in the class of "direct oral anticoagulants" and so if you get to the pharmacy and the apixaban is needlessly expensive, call your PCP, as he could prescribe one of the alternate agents. Coverage is getting better for most of these, but it is always very difficult to tell which ones will be covered or not without simply running a prescription to see. -Of course, when you are on a blood thinner, risk of bleeding is higher than if you are not on a blood thinner at all, but because almost all bleeding problems can be treated, and we can almost never give someone back brain tissue after an atrial fibrillation related stroke, the risk of bleeding versus clotting is very apples and oranges. -The newer medications like apixaban (Eliquis) are overall less risky for serious bleeds than the "old school" medication of Coumadin. Further, if there is a serious bleed, it is more likely to be gastrointestinaland is a physician who takes care of serious bleeds, GI bleeds (while appearing scary) are almost always very manageable. Further, as an added benefit, they do not have the drug and food interactions that Coumadin has, nor do they require lab work to follow levels. -As a rule of safety, if you have bleeding that you can put pressure onput pressure on it and then look at the clock. This would be something on the order of cutting your finger in the kitchen, or having a nosebleed. Most of these types of bleeds will respond to 10 minutes of pressure. The reason I say to look at the clock, is because if you are holding pressure on a cut or a nosebleed, 2 minutes will feel like 10, and 10 minutes will feel like forever! If bleed does not respond to 10 minutes of pressure, then it is worth getting looked atthe cut finger might need stitched, or the nosebleed might need packed or cauterized. Further, if it is bleeding that you cannot put pressure on (such as if you notice that you were pooping blood or vomiting blood) then you would know that you should come to the hospital right away. -Again, to recenter the discussion, the reason that we will have you on the blood thinners is to reduce risk of stroke, as atrial fibrillation strokes can be quite devastating. Covid -You appear to be recovering from the Covid quite nicely, I would simply have you finish out the course of dexamethasone previously prescribed. Urinary tract infection Finish out the course of cefdinir previously prescribed To do: -Take medications as written on the attached list -Check your pulse 3-4 times a day, sometimes at rest and sometimes when walking -Follow-up with your PCP this week virtually, and ideally in another 1 to 2 weeks [id number], once it is safe for you to go to the office -Have an echocardiogram done in 2 to 4 weeks -Repeat TSH in approximately 4 weeks Pending Studies at Discharge: No Stand-Alone Forms: My [facility], Smoking Cessation Medications and DC Order Prescriptions: New metoprolol succinate 50 mg Tablet Extended Release 24 Hr 75 mg PO HS Qty: 30 RF: 0 Eliquis 2.5 mg Tablet 5 mg PO BID Qty: 60 RF: 0 Continued potassium chloride [Klor-Con M20] 20 mEq tablet,ER particles/crystals 20 meq PO QAM RF: 0 diltiazem HCl 120 mg capsule,extended release 24hr 120 mg PO QAM RF: 0 montelukast 10 mg tablet 10 mg PO QAM RF: 0 furosemide 40 mg tablet 40 mg PO QAM RF: 0 prednisone 20 mg tablet 100 mg PO DAILY PRN (Reason: Chemo Treatments) RF: 0 prochlorperazine maleate 10 mg tablet 10 mg PO Q6H PRN (Reason: Nausea) RF: 0 cefdinir 300 mg capsule 300 mg PO BID Qty: 12 RF: 0 dexamethasone 6 mg tablet 6 mg PO DAILY Qty: 3 RF: 0 metoprolol succinate 50 mg tablet extended release 24 hr 50 mg PO QAM RF: 0 omega 5-xtt-ufe-fish oil [Fish Oil] 1,200 (144-216) mg Capsule 2 cap PO QAM RF: 0 Discharge Orders: Discharge Order (Routine); Ordered 02/02/21 Ordered By: Shun Brito/Other Patient Handouts: Stroke and Heart Disease, Discharge Instructions for Atrial ..., Stroke Prevent Live W Atrial Fib, Understanding Atrial Fibrillation, Understanding Tachycardia Admission Data Admit Date/Time: 02/01/21 12:51 Attending Provider: Shun Rawls Admit Provider: Gallo Coleman Primary Care Provider: William Gray Other Providers: Gallo Coleman Other Interventions: Discharge Summary Assessment (RN) Last Done: 02/02/21 16:54 Coding Level of Care Code D/C Day Management >30 mins Diagnoses Afib I48.91 Atrial fibrillation type: unspecified Obesity E66.9; Z68.38 Obesity type: unspecified obesity type Obesity classification: adult class 2 (BMI 35 - 39.9) Serious obesity comorbidity presence: without serious comorbidity Body mass index: BMI 38.0-38.9 Acute UTI (urinary tract infection) N39.0 Hypertension I10 Hypertension type: essential hypertension COVID-19 U07.1 Non Hodgkin's lymphoma C82.93 Follicular lymphoma type: unspecified follicular type Lymphoma site: intra-abdominal nodes Non-Hodgkin lymphoma type: follicular Elevated liver enzymes R74.8 Discharge planning issues Z02.9
[2021-02-03 05:54] LABS: Estimated Average Glucose 103 mg/dl; Hemoglobin A1C 5.2 % (4.5-5.6)
== END 2021-02-02 18:15 | disposition home or self-care (01) | DRG 308 ==
LOC: ED 08:32 → 2S 12:51 → SUATTDRO 12:51 → 2S 14:06

== ENCOUNTER 2023-03-16 05:46 | Observation (INO) ==
--- NOTE | 2023-02-17 10:12 | PAT Medication Instructions ---
Medication Instructions Date of Service February 17, 2023 Home Medications Medication Instructions Recorded apixaban 5 mg tablet 5 mg PO BID #180 tabs 04/28/22 furosemide 40 mg tablet 40 mg PO QAM montelukast 10 mg tablet 10 mg PO QAM potassium chloride 20 mEq tablet,extended release(part/cryst) (Klor-Con M) 20 meq PO QAM omega 1-mut-kmw-fish oil 1,200 mg (144 mg-216 mg) capsule (Fish Oil) 2 cap PO QAM metoprolol succinate 50 mg tablet,extended release 24 hr 50 mg PO HS cyanocobalamin (vitamin B-12) 2,500 mcg sublingual tablet (Vitamin B-12) 2,500 mcg sublingual QAM apixaban 5 mg tablet 5 mg PO BID anastrozole 1 mg tablet 1 mg PO QAM diltiazem HCl 240 mg capsule,extended release 24 hr 240 mg PO QAM ASK your prescriber and surgeon apixaban 5 mg tablet 5 mg PO BID (in order for spinal anesthesia, Apixaban needs to be stopped 72 hours/3 days before surgery. Please check if okay with doctor that prescribes this to you) anastrozole 1 mg tablet 1 mg PO QAM STOP taking 2 weeks before surgery (or as soon as possible if surgery is within 2 weeks) omega 6-arc-mmi-fish oil 1,200 mg (144 mg-216 mg) capsule (Fish Oil) 2 cap PO QAM DO NOT take the morning of surgery furosemide 40 mg tablet 40 mg PO QAM montelukast 10 mg tablet 10 mg PO QAM potassium chloride 20 mEq tablet,extended release(part/cryst) (Klor-Con M) 20 meq PO QAM cyanocobalamin (vitamin B-12) 2,500 mcg sublingual tablet (Vitamin B-12) 2,500 mcg sublingual QAM Take morning of surgery With a small sip of water, OTHERWISE NOTHING TO EAT OR DRINK AFTER MIDNIGHT: diltiazem HCl 240 mg capsule,extended release 24 hr 240 mg PO QAM Take evening before surgery metoprolol succinate 50 mg tablet,extended release 24 hr 50 mg PO HS Other Notes If you have any questions please call us at [phone] or [phone] or [phone] or [phone]
--- NOTE | 2023-02-22 12:21 | History & Physical Report ---
Date of Service February 22, 2023 date of surgery: 03/16/23 Procedure: Right Total Knee Arthroplasty Surgeon: Gallo Goldberg Assessment & Plan (1) Arthritis of right knee: Plan: Risks and benefits of procedure discussed in detail today, patient would like to proceed with a Right total knee replacement at [facility] as scheduled. will obtain medical clearance as well as cardiac clearance prior to surgery as well as obtain PATs at [facility]. Will resume her Eliquis post op, f/u 2 weeks post op for routine post-operative care and x-ray, sooner if having any problems. will make arrangements for HHPT at the time of discharge, she will have her sister staying with her once she returns home. At this point in time, has failed conservative measures and would like to proceed with surgical intervention. The risks and benefits have been discussed including, but not limited to, risk of infection, nerve injury, stiffness, loss of motion, failure to improve, etc. Reasonable outcomes and options of treatment were discussed. An explanation of appropriate alternatives to the procedure that may be advantageous were discussed and their risks and benefits, as well as the risks and benefits of not proceeding with treatment. I offered to answer any additional inquiries concerning the treatment involved. All the patient's questions were answered. The patient is agreeable, understanding of the treatment plan and alternatives, and wishes to proceed with the treatment plan. History of Present Illness Chief Complaint: Right knee pain Primary Care Provider: William Shah is a pleasant 72-year-old female presents for preop evaluation prior to right total knee replacement. She has been having pain in his knee for many years now which is gradually worsened and is now affecting her daily activities including walking standing going up and down stairs. She rates her current pain as a 7 out of 10, she has tried previous viscosupplementation as well as corticosteroid injection without much improvement, she is unable to take anti- inflammatories secondary to using Eliquis. At this point time is failed conservative measures and would like to proceed with a right total knee replacement Allergies Allergy/AdvReac Type Severity Reaction Status Date / Time lisinopril Allergy Severe FACIAL AND Verified 02/18/23 11:17 THROAT SWELLING Home Medications Medication Instructions Recorded Confirmed Type furosemide 40 mg tablet 40 mg PO QAM 01/16/20 02/18/23 History montelukast 10 mg tablet 10 mg PO QAM 01/16/20 02/18/23 History potassium chloride 20 mEq 20 meq PO QAM 01/16/20 02/18/23 History tablet,extended release(part/cryst) (Klor-Con M) omega 9-ray-lxm-fish oil 1,200 mg 2 cap PO QAM 01/25/21 02/18/23 History (144 mg-216 mg) capsule (Fish Oil) cyanocobalamin (vitamin B-12) 2,500 mcg sublingual QAM 01/02/22 02/18/23 History 2,500 mcg sublingual tablet (Vitamin B-12) apixaban 5 mg tablet 5 mg PO BID #180 tabs 04/28/22 02/18/23 Rx anastrozole 1 mg tablet 1 mg PO QAM 08/07/22 02/18/23 History diltiazem HCl 240 mg 240 mg PO QAM 02/15/23 02/15/23 History capsule,extended release 24 hr metoprolol succinate 50 mg 75 mg PO HS 02/18/23 02/18/23 History tablet,extended release 24 hr Past Med/Surg History Medical History Afib Dx 01/2021. Follows with [facility] [place] Cardiology. On Eliquis no pacer GERD (gastroesophageal reflux disease) "MILD" Controlled and stable History of breast cancer Right side- s/p partial mastectomy/XRT No limb restriction History of COVID-19 ~12/2020, asymptomatic. 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 Port is still in place on left side of chest On anticoagulant therapy Wheezing Rarely - no inhaler currently. More so in winter months Surgical History H/O foot surgery RT FOOT "TOES STRAIGHTENED" H/O tubal ligation In her 30's History of appendectomy In her 20's History of bone marrow biopsy (01/24/20) Left Iliac Crest Olinda ZELAYA History of breast biopsy (12/05/21) Right History of colonoscopy History of esophagogastroduodenoscopy (EGD) History of laparoscopic cholecystectomy History of lymph node biopsy (11/24/19) Right Submandibular FNA William Gray PA-C History of partial mastectomy of right breast (01/12/22) Localization + Right Axillary [place] Lymph Node Biopsy Dr. Ponce Page at [facility] History of tooth extraction Port-A-Cath in place (02/01/20) Insertion of Mediport with Fluoroscopy, Left Subclavian Dr. Mead Family History Mother History of hysterectomy for unknown cancer Father No problems noted. Aunt Breast cancer Uncle Lymphoma Sister No problems noted. Brother No problems noted. Brother No problems noted. Brother No problems noted. Brother No problems noted. Son No problems noted. Son No problems noted. Son No problems noted. 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[employer] How many Children do You have: 3 Feels Safe at Home: Yes Childhood Exposure to Second-Hand Smoke: No caffeine: Yes (tea) during the past year weight has: remained stable Dental Care, Regularly: Yes Assistive Devices: None Review of Systems Review of Systems: All systems reviewed & are unremarkable except as noted in HPI & below Constitutional: no fever, no chills and no sweats Respiratory: no cough and no dyspnea Cardiovascular: no chest pain, no dyspnea and no orthopnea Gastrointestinal: no abdominal pain, no nausea and no vomiting Musculoskeletal: as per Subjective / HPI Physical Exam Physical Exam: HT: 5ft 4in WT: 111 kg Constitutional: WD/WN, vitals as above no acute distress Respiratory: normal respiratory effort, lungs clear to auscultation no respiratory distress, no labored breathing and does not use accessory muscles Cardiovascular: RRR, no murmur, no edema Gastrointestinal (Abdomen): normal bowel sounds, soft, nontender, no hepatosplenomegaly Musculoskeletal: Knee: + knee abnormal to inspection (RIGHT KNEE), + effusion (+1 effusion), + limited ROM of knee (ROM 0/3/110), + knee ROM with crepitation, + joint line tenderness (medial joint line) and + Jesus's sign positive; no deformity, no skin erythema, no ecchymosis, no valgus laxity, no varus laxity, anterior drawer test negative, Sania's sign negative and pivot shift test negative Results & Data Results & Data Diagnostic Findings Right Knee X-ray: Right knee series showing advanced degenerative changes to the right knee, narrowing of the medial compartment and patello-femoral joint with patellar spurring noted, findings showing joint space narrowing of the medial compartment and patello-femoral joint, osteophyte formation and subchondral sclerosis noted. overall varus alignment. no acute bony pathology noted.
--- NOTE | 2023-02-22 13:33 | Anesthesiology Consultation ---
Date of Service February 22, 2023 Assessment & Plan (1) Encounter for pre-operative examination: Chart Review Chart Review: Acceptable Risk for Surgery (awaiting PCP clearance 03/02/23) and Patient seen in Pre Admission Testing - Awaiting PCP clearance scheduled 03/02/23 - Pt is NOT an Outpatient Joint candidate due to age and PMH Per PAT appt on 02/22/23, patient denies any recent travel or large group activities. Pt is vaccinated for Covid. Will leave to surgeon's discretion if preop Covid testing needed. Educated on importance of using Covid precautions one week prior to surgery Pt seen by cardio 02/18/23= "Based on her functional status without limiting cardiopulmonary symptoms, normal LV systolic function, and the fact she was largely asymptomatic when in atrial fibrillation with RVR -- patient is an acceptable surgical risk to proceed with surgery as scheduled. There is no need for further ischemic workup at this time. She was advised to take her usual doses of Toprol XL and Diltiazem CD the morning of surgery with sips for. Hold Eliquis x 3 days leading up to surgery." Teaching & Discussion Pre-Anesthesia Teaching/Discussion Notes: Instructed NPO after midnight before surgery,except medications with 15 cc of water. Medication instructions provided according to the PAT guidelines. History Surgery Operation Date: 03/16/23 07:15 Proposed Procedures p Right Total Knee Arthroplasty - Gallo Goldberg DO Height/Weight Height: 5 ft 4 in Weight: 120 kg Allergies Allergy/AdvReac Type Severity Reaction Status Date / Time lisinopril Allergy Severe FACIAL AND Verified 02/18/23 11:17 THROAT SWELLING Medications Home Medications Medication Instructions Recorded Confirmed Last Taken furosemide 40 mg tablet 40 mg PO QAM 01/16/20 02/18/23 01/10/22 08:00 montelukast 10 mg tablet 10 mg PO QAM 01/16/20 02/18/23 01/11/22 08:00 potassium chloride 20 mEq 20 meq PO QAM 01/16/20 02/18/23 01/11/22 08:00 tablet,extended release(part/cryst) (Klor-Con M) omega 8-yho-cue-fish oil 1,200 mg 2 cap PO QAM 01/25/21 02/18/23 01/11/22 08:00 (144 mg-216 mg) capsule (Fish Oil) cyanocobalamin (vitamin B-12) 2,500 mcg sublingual QAM 01/02/22 02/18/23 01/11/22 08:00 2,500 mcg sublingual tablet (Vitamin B-12) apixaban 5 mg tablet 5 mg PO BID #180 tabs 04/28/22 02/18/23 Unknown anastrozole 1 mg tablet 1 mg PO QAM 08/07/22 02/18/23 Unknown diltiazem HCl 240 mg 240 mg PO QAM 02/15/23 02/15/23 Unknown capsule,extended release 24 hr metoprolol succinate 50 mg 75 mg PO HS 02/18/23 02/18/23 Unknown tablet,extended release 24 hr Past Medical History Medical History Afib Dx 01/2021. Follows with [facility] Cardiology. On Eliquis no pacer GERD (gastroesophageal reflux disease) "MILD" Controlled and stable History of breast cancer Right side- s/p partial mastectomy/XRT No limb restriction History of COVID-19 ~12/2020, asymptomatic. 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 Port is still in place on left side of chest On anticoagulant therapy Wheezing Rarely - no inhaler currently. More so in winter months Exercise / Class Metabolic Activity III < 4 Walking/Shop/Light housework (no chest pain or SOB with flat surface ambulation ) Past Family History Family History Mother History of hysterectomy for unknown cancer Father No problems noted. Aunt Breast cancer Uncle Lymphoma Sister No problems noted. Brother No problems noted. Brother No problems noted. Brother No problems noted. Brother No problems noted. Son No problems noted. Son No problems noted. Son No problems noted. Past Surgical History Surgical History H/O foot surgery RT FOOT "TOES STRAIGHTENED" H/O tubal ligation In her 30's History of appendectomy In her 20's History of bone marrow biopsy (01/24/20) Left Iliac Crest Olinda ZELAYA History of breast biopsy (12/05/21) Right History of colonoscopy History of esophagogastroduodenoscopy (EGD) History of laparoscopic cholecystectomy History of lymph node biopsy (11/24/19) Right Submandibular FNA William Gray PA-C History of partial mastectomy of right breast (01/12/22) Localization + Right Axillary [place] Lymph Node Biopsy Dr. Ponce Page at [facility] History of tooth extraction Port-A-Cath in place (02/01/20) Insertion of Mediport with Fluoroscopy, Left Subclavian Dr. Mead Past Anesthesia History No Hx of Anesthesia Complications and No Family Hx of Anesthesia Complications History of PONV No Hx of PONV and No Hx of Motion Sickness Social History Smoking Status: Former smoker tobacco type: cigarettes Do You Dip or Chew Tobacco: No Smoking End Date: 18 yrs ago Hx Alcohol Use: No Hx Substance Use: No substance use type: does not use Review of Systems Hx of blood transfusion s/p chemo (around 2019) Patient denies chest pain, shortness of breath, dyspnea on exertion, cough, palpitations. No hx of seizures, stroke, MO, apnea/snoring. No hx of blood clots. Physical Exam Vital Signs VITALS BP 139/81 P 64 TEMP 98.0 SP02 96% on RA RESP 16 Constitutional no acute distress ENMT Mouth: no TMJ clicking Thyromental Distance: > or= 3.5 Finger Breadths (3.5) Mallampati Class: II Missing side teeth and molars Neck + limited neck extension (mild ) Respiratory normal respiratory effort; no respiratory distress Auscultation: lungs clear to auscultation bilaterally, + diminished lung sounds (mild throughout) and + wheezes (minimal to lung bases ) Cardiovascular Rate/Rhythm: regular rate and regular rhythm Heart Sounds: no murmur Vessels: no carotid bruit Musculoskeletal Spine: no pain with cervical ROM Extremities: extremities normal to inspection Psychiatric Orientation: alert Lab Results Anesthesia Preop Results Results Anesthesia Widget: WBC 2.87 K/ul (4.8-10.8) L 02/22/23 Hgb 11.6 g/dl (12.0-16.0) L 02/22/23 Hct 33.7 % (37.0-47.0) L 02/22/23 Plt 145 K/uL (130-400) 02/22/23 Na 142 mmol/L (136-145) 02/22/23 K 4.3 mmol/L (3.5-5.1) 02/22/23 Cl 105 mmol/L (98-107) 02/22/23 CO2 31 mmol/L (21-32) 02/22/23 BUN 17 mg/dl (6-23) 02/22/23 Creat 0.90 mg/dl (0.6-1.2) 02/22/23 Glucose Level 90 mg/dl (70-99(Fasting)) 02/22/23 PT 10.9 Seconds (9.0-12.0) 02/22/23 PTT 27.0 Seconds (21.0-31.0) 02/22/23 INR 1.0 (0.9-1.1) 02/22/23 HA1c 4.9 % (4.5-5.6) 02/22/23 Urine Color Yellow 02/22/23 Urine Appearance Clear (Clear) 02/22/23 Urine pH 5.5 (4.5-7.5) 02/22/23 Urine Specific [place] 1.011 (1.000-1.030) 02/22/23 Urine Protein Negative (Negative) 02/22/23 Urine Glucose (UA) Negative (Negative) 02/22/23 Urine Ketones Negative (Negative) 02/22/23 Urine Blood Trace (Negative) H 02/22/23 Urine Nitrite Negative (Negative) 02/22/23 Urine Bilirubin Negative (Negative) 02/22/23 Urine Urobilinogen Negative (Negative) 02/22/23 Urine Leukocyte Esterase 2+ (Negative) H 02/22/23 Urine WBC (Auto) >30 /hpf (0-5) H 02/22/23 Urine RBC (Auto) 0-4 /hpf (0-4) 02/22/23 Urine Hyaline Casts (Auto) 1-5 /lpf (0-5) 02/22/23 Urine Epithelial Cells (Auto) 10-20 /lpf (0-5) H 02/22/23 Urine Bacteria (Auto) 1+ (Negative) H 02/22/23 Blood Type A Positive 02/22/23 Antibody Screen NEGATIVE 02/22/23 Testing Laboratory Results Chronic mild leukopenia since 2020- stable - surgeon's office informed Chronic anemia since 2020- stable- surgeon's office informed Surgeon's office informed of abnormal UA- surgeon's office informed Electrocardiogram Date: 02/22/23 Findings: + NSR @ (62bpm) Normal EKG per cardio Chest X-Ray Date: 02/22/23 FINDINGS: A port catheter is seen. Calcified aortic knob is seen. The lungs are clear. No evidence of pleural effusion or pneumothorax. IMPRESSION: No acute chest disease. Echocardiogram Date: 10/28/20 EF: 50-55% LV Function: normal Other Findings: no LVH Valvular Disease: + no significant valvular disease Other Testing Chest CT 01/15/23= There is no evidence of intrathoracic metastatic disease. There is no airspace consolidation or pleural effusion. Chronic/treatment- related change in the right breast is again noted. COVID-19 Risk Screen Screening Information COVID-19 Screen Date: 02/22/23 Exposure 21 Days Family/Household +COVID Last 21 Days: No Exposure 10 Days Any COVID Exposure Last 10 Days: No Symptoms Last 10 Days Experienced COVID Sx Last 10 Days: No + COVID 0-90 Days COVID + in Last 0-90 Days: No Risk Plan COVID Risk Plan: No Risk Identified Patient Education COVID Preop Screening Education Complete: Yes
[2023-03-16] MEDS ORDERED: CeleBREX 200 MG CAP PO SCH (06:00)
[2023-03-16] MEDS ORDERED: FAMOTIDINE 20 MG TAB PO SCH (06:00)
[2023-03-16] MEDS ORDERED: TRANEXAMIC ACID 1,000 MG **IV Pre-op IV SCH (06:00)
[2023-03-16] MEDS ORDERED: TRANEXAMIC ACID 1,000 MG **IV Intra-op IV SCH (06:00)
[2023-03-16] MEDS ORDERED: GABAPENTIN 300 MG CAP PO SCH (06:00)
[2023-03-16] MEDS ORDERED: ROPIVACAINE 0.5% HCL/PF 150 MG, BUPIVACAINE 0.75% MPF 20 ML, EPINEPHrine 30MG/30ML (OR ... INSTIL SCH (06:00)
[2023-03-16] MEDS ORDERED: METOCLOPRAMIDE HCL 10 MG TABLET PO SCH (06:00)
[2023-03-16] MEDS ORDERED: ACETAMINOPHEN 500 MG TAB PO SCH (06:00)
[2023-03-16] MEDS ORDERED: dexAMETHasone 4 MG TAB PO SCH (06:00)
[2023-03-16] MEDS ORDERED: LR 500ML BOLUS, THEN 15ML/HR IV SCH (06:00)
[2023-03-16] MEDS ORDERED: BUPIVACAINE 0.5 % 5 MG/1 ML PF 10ML VIAL ONE (06:24)
[2023-03-16] MEDS ORDERED: ROPIVACAINE 0.5% 5 MG/ML 30 ML VIAL ONE (06:24)
[2023-03-16] MEDS ORDERED: DEXAMETHASONE SOD INJ 4 MG/ML VIAL ONE ×2 (06:24→09:23)
[2023-03-16] MEDS ORDERED: LIDOCAINE 2% 2 ML VIAL/AMP(20MG/ML) INFIL ONE (07:15)
[2023-03-16] MEDS ORDERED: PROPOFOL IV EMULSION 10 MG/ML 20 ML VIAL IV ONE (07:15)
[2023-03-16] MEDS ORDERED: ONDANSETRON INJ 2 MG/ML 2 ML VIAL ONE (07:15)
[2023-03-16] MEDS ORDERED: MIDAZOLAM HCL 1 MG/ML 2ML VIAL ONE (07:16)
--- NOTE | 2023-03-16 07:17 | History & Physical Bridge Note ---
Date of Service March 16, 2023 History & Physical Bridge Note I have examined the patient, reviewed the History & Physical and in the interval since the performance of the History & Physical I have noted the following changes of clinical significance: no changes noted
[2023-03-16] MEDS ORDERED: ATROPINE SULFATE 0.1 MG/ML 10ML SYR IV PRN (08:04)
[2023-03-16] MEDS ORDERED: ePHEDrine sulfate 50 MG/ML AMP IV PRN (08:04)
[2023-03-16] MEDS ORDERED: HYDROmorphone INJ 1 MG/ML SYRINGE IV PRN (08:04)
[2023-03-16] MEDS ORDERED: ONDANSETRON INJ 2 MG/ML 2 ML VIAL IV PRN ×2 (08:04→12:06)
[2023-03-16] MEDS ORDERED: ORTHO JOINT ANESTHETIC ONE (08:26)
[2023-03-16] MEDS ORDERED: GLYCOPYRROLATE 0.2 MG/ML VIAL ONE (09:23)
[2023-03-16] MEDS ORDERED: NEOSTIGMINE METHYLSULFATE 1 MG/ML 10ML VIAL ONE (09:23)
[2023-03-16] MEDS ORDERED: ROCURONIUM BROMIDE 10 MG/ML 5 ML VIAL IV ONE (09:23)
--- NOTE | 2023-03-16 09:55 | Operative Report ---
Post Operative Report Pre & Post Diagnosis Operation Date: 03/16/23 08:00 Pre-Op Diagnosis: Osteoarthritis knee right. Post-Op Diagnosis: Osteoarthritis knee right. Morbid obesity I identified the patient and participated in the time-out.: Yes Procedure Operation Date: 03/16/23 08:00 Actual Procedures p Right Total Knee Arthroplasty(Right) utilizing [employer] journey 2 patient matched total knee arthroplasty size femur 4 tibia 4 poly 13 patella 29 мария Goldberg DO Surgeon Gallo Goldberg DO Immunologist Eduardo LARA Estimated Blood Loss 15 Findings Consistent with Post-Op Diagnosis Patient presents with severe end-stage DJD right knee varus alignment subchondral sclerosis marginal osteophytes eburnated [id number] with a moderate to large effusion Specimens Bone and cartilage Drains Medium bore Hemovac Anesthesia Type General w/FOI & Regional Complications none Disposition Accompanied Patient To Recovery: No Disposition: Recovery Room Indications Patient presents with severe end-stage DJD right knee after failed attempted conservative management occluding physical therapy anti-inflammatories relative rest activity modification corticosteroid injection viscosupplementation above intraoperative findings were noted Description of Procedure After proper prepping and draping of the Right lower extremity anterior midline incision was made over the region of the extensor extensor mechanism after meticulous hemostasis was obtained and maintained in subcutaneous tissues a medial parapatellar incision was made The patella was subluxed lateralward the medial lateral gutter were cleaned from any hypertrophic synovitis and scar tissue of the distal femoral block was placed and the distal femoral osteotomy cut was made subsequently the chamfers anterior and posterior osteotomy cuts were made utilizing the 4-in-1 block the tibia was subsequently subluxed anteriorward medial and ateral meniscal remnants were excised in their entirety remnants of the anterior and posterior cruciate ligaments were excised in their entirety excellent exposure of the proximal tibia was obtained the tibial osteotomy guide was placed on the proximal tibial osteotomy cut was made once again the knee was irrigated with copious amounts of sterile saline solution the patella was subsequently everted lateralward thickened scar tissue around the patella was removed the patella was subsequently cut utilizing a freehand technique and was drilled prepared for final preparation and placement of patella socially flexion-extension gaps were checked and the equal and symmetric trials were placed to the appropriate femoral and tibial trials with poly-spacer being placed for equal flexion and extension gaps and full range of motion including extension to 0 and flexion to 140 the trial components after having been taken to recovery range of motion was subsequently removed meticulous hemostasis was obtained and maintained subsequently a knee block injection of joint cocktail including ropivacaine 0.5% 150 mg. Bupivacaine 0.5% epinephrine 1-200,030 mL's toradol 30 mg dexamethasone 4 mg ketamine 10 mg clonidine 100 micrograms normal saline solution 30 mg was infiltrated into the soft tissues of the posterior knee medial lateral gutters and periosteal synovium special attention was paid to protect neurovascular structures at all times subsequently trial components having been removed the knee was irrigated with sterile saline solution. debris was removed the proximal tibia was subsequently prepared and was made ready for the placement of the tibial component tibial component was also cemented and tamped into position the femoral component was subsequently placed and cemented in the position the patellar component was subsequently cemented in position because hemostasis once again obtained and maintained wound having been thoroughly irrigated with debridement and debridement lavage was performed as well as a medial parapatellar incision closed with #1 Vicryl in interrupted fashion subcutaneous was closed with #2 Vicryl skin was closed with skin clips. PA-C was necessary for prepping and drapping as well as wound closure of deep fascia Sub cutaneous tissue and skin and was necessary for the case. A sterile compressive dressing was placed patient was taken to recovery in stable condition of report dictated by Yusuf I attest to the content of the Intraoperative Record and any orders documented therein. Any exceptions are noted below.Due to the complex nature of the procedure, the entire surgery was performed with the operational assistance of Eduardo LARA. The special event assistant, under direct supervision, was involved in the actual performance of all aspects of the surgical procedure including hemostasis, tissue retraction and incision, instrument management, patient positioning, and wound closure.The patient is 121.3 kg with a BMI of 45.9. The patient's habitus did contribute to significant technical difficulty requiring extra time. Additional help was necessary in order to position the patient safely. The use of specialized (longer, deeper) retractors and/or instruments were needed. Due to this, the procedure took 20 minutes longer than the standard total knee arthroplasty." I attest to the content of the Intraoperative Record and any orders documented therein. Any exceptions are noted below.
[2023-03-16] MEDS ORDERED: ALBUT/IPRATROP 3MG/0.5MG NEB 3 ML VIAL ONE (10:57)
[2023-03-16] MEDS ORDERED: ALBUT/IPRATROP 3MG/0.5MG NEB 3 ML VIAL NEB STA (11:15)
--- NOTE | 2023-03-16 11:56 | XRay Report ---
TWO VIEWS RIGHT KNEE CLINICAL HISTORY: Postoperative examination. FINDINGS: AP and crosstable lateral portable views of the right knee are obtained. A right knee arthr oplasty is in near anatomic alignment. There has been undersurface remodeling of the patella. No acut e fracture is seen. There are expected postoperative changes around the knee including a surgical ariadne in, soft tissue edema, and subcutaneous gas. IMPRESSION: Expected postoperative changes status post right knee arthroplasty. No acute fracture is seen. ACT 112: Negative or not required by law. Electronically signed by: Elier Lewis M.D. 03/16/2023 11:55 AM
[2023-03-16] MEDS ORDERED: SODIUM CHLORIDE 0.9% 1000ML 1,000 ML IV SCH (12:06)
[2023-03-16] MEDS ORDERED: diphenhydrAMINE 50 MG/ML VIAL IV PRN (12:06)
[2023-03-16] MEDS ORDERED: NALOXONE HCL 0.4 MG/1 ML VIAL/CARP IV PRN (12:06)
[2023-03-16] MEDS ORDERED: MAGNESIUM HYDROXIDE SUSP 30 ML UDC PO PRN (12:06)
[2023-03-16] MEDS ORDERED: oxyCODONE HCL IR 5 MG TAB (IMMEDIATE RELEASE) PO PRN (12:06)
[2023-03-16] MEDS ORDERED: bisacodyL 10 MG SUPP PR PRN (12:06)
[2023-03-16] MEDS ORDERED: HYDROmorphone INJ 0.5 MG/0.5 ML SYR IV PRN (12:06)
--- NOTE | 2023-03-16 12:57 | Anesthesiology Progress Note ---
Date of Service March 16, 2023 Anesthesia Post Procedure Vital Signs Vital Signs: Temp Pulse Pulse Resp BP BP Pulse Ox 03/16/23 12:40 60 16 124/74 99 03/16/23 12:24 57 L 16 128/75 97 03/16/23 11:40 03/16/23 11:40 36.4 C L 62 16 109/64 97 03/16/23 11:30 61 18 110/65 94 03/16/23 11:20 59 L 17 121/66 96 03/16/23 11:10 36.3 C L 56 L 14 118/56 L 94 03/16/23 11:00 67 17 127/60 95 03/16/23 10:50 72 18 127/53 L 96 03/16/23 10:40 36.0 C L 81 16 129/70 96 03/16/23 06:08 03/16/23 06:08 67 21 167/79 H 97 O2 Del Method O2 Flow Rate 03/16/23 12:40 Nasal Cannula 2 03/16/23 12:24 Nasal Cannula 2 03/16/23 11:40 Nasal Cannula 2 03/16/23 11:40 Nasal Cannula 2 03/16/23 11:30 Nasal Cannula 2 03/16/23 11:20 Nasal Cannula 2 03/16/23 11:10 Room Air 03/16/23 11:00 Nebulizer 12 03/16/23 10:50 Oxymask 6 03/16/23 10:40 Oxymask 6 03/16/23 06:08 Room Air 03/16/23 06:08 Room Air Pain Intensity Right Knee: Pain Intensity: 8 Transfer of Care Handoff Completed per policy Notes Mental Status: alert / awake / arousable and participated in evaluation Nausea / Vomiting: adequately controlled Pain: adequately controlled Airway Patency, RR, SpO2: stable & adequate BP & HR: stable & adequate Hydration State: stable & adequate Neuraxial Anesthesia: was administered and sensory block is resolving Anesthetic Complications: no major complications apparent and Pt Satisfied with anesthetic care
[2023-03-16] MEDS: ACETAMINOPHEN 500 MG TAB PO SCH ×2 (14:45→22:30)
--- NOTE | 2023-03-16 16:00 | Hospitalist Consultation ---
Date of Consultation March 16, 2023 Assessment & Plan (1) Arthritis of right knee: s/p Right Total Knee Arthroplasty(Right) utilizing [employer] 2 patient matched total knee arthroplasty size femur 4 tibia 4 poly 13 patella 29 мария Goldberg, DO EBL 15cc Pain control/bowel regimen/PT/OT per primary service Eliquis 5mg BID to resume in AM, already ordered by primary service (2) Wheezing: prior use inhaler but not in a while, worse wheezing during winter months. ?und erlying seasonal allergies is on 2L post op, will check CXR BMP/Mag, replacement to keep K ~4, Mag ~2 to prevent post-op afib Stopped IVF, will continue her diuretic for tomorrow w/ lasix 40mg daily additional dose of diuretic if needed pending CXR (3) Paroxysmal atrial fibrillation: hx of such, eliquis held pre-op, clearance by cardiology rates controlled on diltiazem 120mg, toprol 75mg daily which have been continued monitor post-op labs, will add mag to AM labs keep k ~4, mag ~2 to prevent issues post-op Of note, does have MCV >100. On B12 supplementation. Will check folate w/ AM labs. Would not check TSH acutely following surgery but of note TSH WAS elevated in January 2021 with normal free T4 but no T3 checked Upon review of hospital records, appears TSH elevation was when she was admitted for new onset afib/rvr and discharge summary notes recommendation for repeat TSH testing in 4 weeks but unclear if this was ever done -- SHE DENIES knowing ever checked and she gets her labs drawn through [place] facilities, so unlikely this was completed. Discussed to f/u with her PCP but will send this note as well for follow up testing to include TSH/T4/T3 and start synthroid outpatient if remains elevated for euvolemia (4) Hypertension: continue usual diltiazem, toprol as above will hold lasix/PO KCl for AM until BP/kidney function assesses, BP currently 124/73 (5) Non Hodgkin's lymphoma: noted, following Dr Yeh s/p 6 cycles R-Chop in March 2021 outpt f/u Breast Cancer Hx invasive ductal carcinoma inner upper quadrant RIGHT breast, stage 1. Dx Nov 2021. ER positive. s/p partial mastectomy followed by radiation tx and remains on anastrazole daily -- getting monitoring for few subtle pulm opacities w/o changes/metastatic disease noted on repeat CT chest in January 2023 Plan Thank you for allowing hospitalist service to participate in the care of Ms Fernandez. Will follow along in AM. Please call with any questions/concerns. Supervising Physician Co-Signing Physician Notes I personally saw and examined the patient. I verified all evans points and agree with Roxann Allen PA-C with the following exceptions and/or additions: 72 year old female s/p right TKA. EBL 15ml. No acute concerns or questions. No longer short of breath after Lasix. O/E A&Ox3, HS RRR, no murmurs, Chest CTAB, no longer wheezing on exam, Abdo SNT A/P s/p Right knee TKA - Pain/VTE/Bowel management per primary orthopedic team Otherwise chronic medical management as above. History of Present Illness Reason for Consultation: medical management Requesting Physician: Dr Goldberg Attending Physician: Gallo Goldberg, History of Present Illness 72yo female with PMHx significant for HTN, HLD, paroxysmal afib w/ RVR, R breast ca, non-hodkin's lymphoma presented for RIGHT total knee arthroplasty by Dr Goldberg . Linda held x 3 days prior to surgery. [place] [facility] [place], on diltiazem 120mg daily, Toprol XL 75mg daily. LV function normal on most recent ECHO. She is evaluated post-op in room 319. Doing well. No CP or SOB, but wheezing on exam and does have some tightness. Was given duoneb post-op. She notes she used inhaler in the past but not recently however she has noticed being more wheezy. Eating/drinking alright and peeing like crazy since surgery. Not having ANY pain to her knee at present. She is hopeful for rehab at discharge- will await therapy evals in AM. Discussed prior afib admission, TSH elevation. She does note occasional issues with constipation and takes metamucil as needed. Dry/brittle skin and baseline fatigue in general. Discussed would have her PCP check her TSH in 4 weeks after recovered from surgery and that she may benefit from Synthroid replacement. Hx depression/anxiety on cymbalta BID and vistaril as needed. Routine surveillance w/ Dr Yeh for her lymphoma/breast cancer but in remission and on anastrazole daily for breast ca. Stopped IVF given increased urination. Will check CXR/bmp/mag now for eval, possible dose of diuretic/mag if needed. No hx sleep apnea noted. Allergies Allergy/AdvReac Type Severity Reaction Status Date / Time lisinopril Allergy Severe FACIAL AND Verified 03/16/23 06:05 THROAT SWELLING Home Medications Medication Instructions Recorded Confirmed Type furosemide 40 mg tablet 40 mg PO QAM 01/16/20 03/16/23 History montelukast 10 mg tablet 10 mg PO QAM 01/16/20 03/16/23 History potassium chloride 20 mEq 20 meq PO QAM 01/16/20 03/16/23 History tablet,extended release(part/cryst) (Klor-Con M) omega 9-tej-qmy-fish oil 1,200 mg 2 cap PO QAM 01/25/21 03/16/23 History (144 mg-216 mg) capsule (Fish Oil) cyanocobalamin (vitamin B-12) 2,500 mcg sublingual QAM 01/02/22 03/16/23 History 2,500 mcg sublingual tablet (Vitamin B-12) apixaban 5 mg tablet 5 mg PO BID #180 tabs 04/28/22 03/16/23 Rx anastrozole 1 mg tablet 1 mg PO QAM 08/07/22 03/16/23 History diltiazem HCl 240 mg 240 mg PO QAM 02/15/23 03/16/23 History capsule,extended release 24 hr metoprolol succinate 50 mg 75 mg PO HS 02/18/23 03/16/23 History tablet,extended release 24 hr acetaminophen 500 mg tablet 1,000 mg PO Q8 14 days #84 tabs 03/17/23 Rx (Tylenol Extra Strength) cefadroxil 500 mg capsule 500 mg PO BID #28 caps 03/17/23 Rx oxycodone 5 mg tablet 5 mg PO Q4H PRN pain #30 tabs 03/17/23 Rx polyethylene glycol 3350 17 gram 17 g PO DAILY PRN constipation #5 03/17/23 Rx oral powder packet (Miralax) ea Patient History Medical History (Updated 03/16/23 @ 16:38 by Roxann Allen PA-C) Afib Dx 01/2021. Follows with [facility]. On Eliquis no pacer GERD (gastroesophageal reflux disease) "MILD" Controlled and stable History of breast cancer Right side- s/p partial mastectomy/XRT No limb restriction History of COVID-19 ~12/2020, asymptomatic. 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 Port is still in place on left side of chest On anticoagulant therapy Wheezing Rarely - no inhaler currently. More so in winter months Surgical History H/O foot surgery RT FOOT "TOES STRAIGHTENED" H/O tubal ligation In her 30's History of appendectomy In her 20's History of bone marrow biopsy (01/24/20) Left Iliac Crest Olinda ZELAYA History of breast biopsy (12/05/21) Right History of colonoscopy History of esophagogastroduodenoscopy (EGD) History of laparoscopic cholecystectomy History of lymph node biopsy (11/24/19) Right Submandibular FNA William Gray PA-C History of partial mastectomy of right breast (01/12/22) Localization + Right Axillary [place] Lymph Node Biopsy Dr. Ponce Page at [facility] History of tooth extraction Port-A-Cath in place (02/01/20) Insertion of Mediport with Fluoroscopy, Left Subclavian Dr. Mead Family History Mother History of hysterectomy for unknown cancer Father No problems noted. Aunt Breast cancer Uncle Lymphoma Sister No problems noted. Brother No problems noted. Brother No problems noted. Brother No problems noted. Brother No problems noted. Son No problems noted. Son No problems noted. Son No problems noted. Social History Smoking Status: Former smoker Tobacco Type: Cigarettes Smoking End Date: 18 yrs ago; Second Hand Exposure: No; Do You Dip or Chew Tobacco: No; Tobacco Cessation Education Requested by Patient: No Hx Alcohol Use: No Hx Substance Use: No Preferred Language: Kazakh Communication Ability: Effective Visual Impairment: Limited Hearing Ability: Normal Illusionist Required: No Beliefs That Will Affect Care: None marital status: / Current Living Situation: Alone current occupational status: employed current occupation: [employer] How many Children do You have: 3 Other Information That Helps Us Care for You: No Feels Safe at Home: Yes Safety Concerns: Feels Safe At This Time Childhood Exposure to Second-Hand Smoke: No Diet: regular caffeine: Yes (tea) during the past year weight has: remained stable Dental Care, Regularly: Yes Assistive Devices: Walker Physical Exam Physical Exam: General: WD/WN obese female sitting up in bed, NAD, on 2L NC HEENT: head normocephalic, atraumatic, mmm, trachea midline Resp: faint expiratory wheezing, no crackles/rales, on 2L, able to talk in complete sentences, occasional nonproductive cough, no tachypnea CV: regular rate/rhythm (rates 60-70s), no significant m/r/g, trace pedal edema, cap refill wnl GI: +BS, soft/NT MSK/Neuro: sheela wrap/dressing to RLE intact, ice pack in place, NVI, toes mobile, sensation intact, strength dorsiflexion/plantar flexion equal in bed Psych: AOx3, cooperative with examination Results & Data Results & Data Vital Signs (Past 12 Hours) Vital Signs Temp Pulse Pulse Resp BP BP Pulse Ox 03/16/23 14:43 36.6 C 64 16 124/73 98 03/16/23 12:40 60 16 124/74 99 03/16/23 12:24 57 L 16 128/75 97 03/16/23 13:38 63 16 125/74 99 03/16/23 11:40 03/16/23 11:40 36.4 C L 62 16 109/64 97 03/16/23 11:30 61 18 110/65 94 03/16/23 11:20 59 L 17 121/66 96 03/16/23 11:10 36.3 C L 56 L 14 118/56 L 94 03/16/23 11:00 67 17 127/60 95 03/16/23 10:50 72 18 127/53 L 96 03/16/23 10:40 36.0 C L 81 16 129/70 96 03/16/23 06:08 03/16/23 06:08 67 21 167/79 H 97 O2 Del Method O2 Flow Rate 03/16/23 14:43 Nasal Cannula 2 03/16/23 12:40 Nasal Cannula 2 03/16/23 12:24 Nasal Cannula 2 03/16/23 13:38 Nasal Cannula 2 03/16/23 11:40 Nasal Cannula 2 03/16/23 11:40 Nasal Cannula 2 03/16/23 11:30 Nasal Cannula 2 03/16/23 11:20 Nasal Cannula 2 03/16/23 11:10 Room Air 03/16/23 11:00 Nebulizer 12 03/16/23 10:50 Oxymask 6 03/16/23 10:40 Oxymask 6 03/16/23 06:08 Room Air 03/16/23 06:08 Room Air Laboratory Results 03/16/23 Range/Units 05:55 SARS-CoV-2, RNA, NAAT NEGATIVE (NEGATIVE) Diagnostic Findings Knee X-Ray 03/16/23 10:45 TWO VIEWS RIGHT KNEE CLINICAL HISTORY: Postoperative examination. FINDINGS: AP and crosstable lateral portable views of the right knee are obtained. A right knee arthroplasty is in near anatomic alignment. There has been undersurface remodeling of the patella. No acute fracture is seen. There are expected postoperative changes around the knee including a surgical drain, soft tissue edema, and subcutaneous gas. IMPRESSION: Expected postoperative changes status post right knee arthroplasty. No acute fracture is seen. ACT 112: Negative or not required by law. Electronically signed by: Elier Lewis M.D. 03/16/2023 11:55 AM PG Care Time/CCT Total # of Minutes Spent Total Time Spent with Patient: Total time spent is greater than 50% in coordination of care (as documented) at patient's floor/unit and/or counseling patient: Coding Level of Care Code 63079 IN/OBS CONSULT LVL 4,60M Diagnoses Arthritis of right knee M17.11 Wheezing R06.2 Paroxysmal atrial fibrillation I48.0 Hypertension I10 Hypertension type: essential hypertension Non Hodgkin's lymphoma C82.93 Follicular lymphoma type: unspecified follicular type Lymphoma site: intra-abdominal nodes Non-Hodgkin lymphoma type: follicular (4) Hypertension Hypertension type: essential hypertension Qualified Code(s): I10 - Essential (primary) hypertension (5) Non Hodgkin's lymphoma Follicular lymphoma type: unspecified follicular type Lymphoma site: intra- abdominal nodes Non-Hodgkin lymphoma type: follicular Qualified Code(s): C82.93 - Follicular lymphoma, unspecified, intra-abdominal lymph nodes
--- NOTE | 2023-03-16 16:50 | XRay Report ---
XR chest 1V portable CLINICAL HISTORY: wheezing, eval volume overload TECHNIQUE: Single frontal radiograph of the chest was obtained. Comparison: Comparison is made to chest radiograph 02/22/2023 FINDINGS: A port catheter is seen. The cardiomediastinal silhouette is stable. Prominence and cephalization of the vasculature is seen. No evidence of pleural effusion or pneumothorax. IMPRESSION: Mild pulmonary edema, increased from prior exam. ACT 112: Negative or not required by law. Electronically signed by: Omar Miranda M.D. 03/16/2023 4:47 PM
[2023-03-16] MEDS: ceFAZolin 2000MG 2,000 MG/15 ML SYR IV SCH (16:58)
[2023-03-16 17:18] LABS: BUN Creatinine Ratio 19.4 (10-20); Calcium 8.5 mg/dl (8.6-10.3); Creatinine Clr Calc Pharmacy 68.1 ml/min; Est GFR (African American) 70.2 ml/min; Est GFR (Non-African American) 60.5 ml/min; Magnesium 1.9 mg/dl (1.7-2.4); Potassium 4.3 mmol/L (3.5-5.1)
[2023-03-16] MEDS ORDERED: FUROSEMIDE 40 MG/4 ML VIAL IV ONE (18:55)
--- NOTE | 2023-03-16 18:57 | Communication Note ---
Date of Service: March 16, 2023 CXR reviewed, mild pulmonary edema. Given wheezing/continued oxygen use post- operatively, will give lasix 40mg IV x1 w/ 1gm IV mag now and monitor response. Place AM lasix on hold until eval kidney function/diuresis w/ IV lasix
[2023-03-16] MEDS ORDERED: MAGNESIUM SULFATE / D5W 1 GM/100 ML BAG IV ONE (18:58)
[2023-03-16] MEDS ORDERED: ALBUTEROL HFA 8 GM INHALER INH PRN (19:14)
[2023-03-16] MEDS: DOCUSATE SODIUM 100 MG CAP PO SCH (20:06)
[2023-03-16] MEDS ORDERED: SENNA 8.6 MG TAB PO SCH (21:00)
[2023-03-16] MEDS ORDERED: METOPROLOL SUCC 25MG EXT REL TAB PO SCH (21:00)
[2023-03-17] MEDS: ceFAZolin 2000MG 2,000 MG/15 ML SYR IV SCH (00:17)
[2023-03-17 06:09] VITALS: BP 135/82; PULSE 55; TEMP 97.9; O2SAT 97
[2023-03-17] MEDS: ACETAMINOPHEN 500 MG TAB PO SCH (06:15)
[2023-03-17 07:24] LABS: Hematocrit (blood only) 29.4 % (37.0-47.0); Hemoglobin 10.4 g/dl (12.0-16.0); Mean Corpuscular Hemoglobin 35.5 pg (25.0-34.0); Mean Corpuscular Hgb Conc 35.4 g/dL (32.0-36.0); Mean Corpuscular Volume 100.3 fL (80.0-100.0); Mean Platelet Volume 10.4 fL (9.4-12.4); Platelet Count 145 K/uL (130-400); RDW Coefficient of Variation 13.5 % (11.5-14.5); Red Blood Count 2.93 M/uL (4.20-5.40); White Blood Count 7.85 K/ul (4.8-10.8)
[2023-03-17 07:39] LABS: BUN Creatinine Ratio 28.4 (10-20); Calcium 8.6 mg/dl (8.6-10.3); Creatinine Clr Calc Pharmacy 62.1 ml/min; Est GFR (African American) 62.8 ml/min; Est GFR (Non-African American) 54.1 ml/min; Magnesium 2.1 mg/dl (1.7-2.4); Potassium 4.8 mmol/L (3.5-5.1)
[2023-03-17] MEDS: DOCUSATE SODIUM 100 MG CAP PO SCH (07:41)
[2023-03-17] MEDS ORDERED: MONTELUKAST SODIUM 10 MG TABLET PO SCH (09:00)
[2023-03-17] MEDS ORDERED: APIXABAN 5 MG TABLET PO SCH (09:00)
[2023-03-17] MEDS ORDERED: MULTIVITAMIN TAB PO SCH (09:00)
[2023-03-17] MEDS ORDERED: ANASTROZOLE 1 MG TAB PO SCH (09:00)
[2023-03-17] MEDS ORDERED: dilTIAZem HCL 240 MG CAPCR PO SCH (09:00)
[2023-03-17] MEDS ORDERED: CYANOCOBALAMIN (B-12) 2,500 MCG TABLET SL SCH (09:00)
[2023-03-17] MEDS ORDERED: FUROSEMIDE 40 MG TAB PO SCH (09:00)
[2023-03-17] MEDS ORDERED: POTASSIUM CHLORIDE CRTAB 20 MEQ TABCR PO SCH (09:00)
--- NOTE | 2023-03-17 10:10 | Orthopedic Progress Note ---
Date of Service March 17, 2023 Assessment & Plan (1) Arthritis of right knee: Plan: Postop day 1 status post right total knee arthroplasty PT/OT protocol. Weightbearing as tolerated. DVT prophylaxis-apixaban p.o. twice daily, SCDALBERT cooper Pain management as written. DC planning-patient is planning for home health services upon discharge. Admission and Anticipated Discharge Date Admission Date: March 16, 2023 Subjective Postop day 1 Patient sitting in her chair at the bedside. No complaints this morning. Pain is controlled. Physical therapy is entering the room and just about to start their session. Patient is hoping to go home today. Physical Exam Physical Exam: Dressings are clean, dry, and intact. Calves are soft nontender. Neurovascular is intact. Toes are mobile. She has good dorsiflexion and plantarflexion of the right foot. Hemovac drainage was approximately 75 cc from the previous shift. Results & Data Vital Signs (Past 12 Hours) Vital Signs Temp Pulse Resp BP Pulse Ox O2 Del Method 03/17/23 07:40 Room Air 03/17/23 06:08 36.6 C 55 L 18 135/82 97 Room Air 03/17/23 03:21 36.5 C 59 L 16 116/74 96 Room Air 03/16/23 23:13 36.8 C 65 16 118/68 95 Room Air Laboratory Results Laboratory Results WBC 7.85 K/ul (4.8-10.8) 03/17/23 07:06 RBC 2.93 M/uL (4.20-5.40) L 03/17/23 07:06 Hgb 10.4 g/dl (12.0-16.0) L 03/17/23 07:06 Hct 29.4 % (37.0-47.0) L 03/17/23 07:06 MCV 100.3 fL (80.0-100.0) H 03/17/23 07:06 MCH 35.5 pg (25.0-34.0) H 03/17/23 07:06 MCHC 35.4 g/dL (32.0-36.0) 03/17/23 07:06 RDW Std Deviation 50.0 fL (36.4-46.3) H 03/17/23 07:06 RDW Coeff of [place] 13.5 % (11.5-14.5) 03/17/23 07:06 Plt Count 145 K/uL (130-400) 03/17/23 07:06 MPV 10.4 fL (9.4-12.4) 03/17/23 07:06 Sodium 137 mmol/L (136-145) 03/17/23 07:06 Potassium 4.8 mmol/L (3.5-5.1) 03/17/23 07:06 Chloride 103 mmol/L (98-107) 03/17/23 07:06 Carbon Dioxide 27 mmol/L (21-32) 03/17/23 07:06 Anion Gap 7 (3-11) 03/17/23 07:06 BUN 29 mg/dl (6-23) H 03/17/23 07:06 Creatinine 1.02 mg/dl (0.6-1.2) 03/17/23 07:06 Est Cr Clr Drug Dosing 62.1 ml/min 03/17/23 07:06 Est GFR ( Amer) 62.8 ml/min 03/17/23 07:06 Est GFR (Non-Af Amer) 54.1 ml/min 03/17/23 07:06 BUN/Creatinine Ratio 28.4 (10-20) H 03/17/23 07:06 Glucose 147 mg/dl (70-99(Fasting)) H 03/17/23 07:06 Calcium 8.6 mg/dl (8.6-10.3) 03/17/23 07:06 Magnesium 2.1 mg/dl (1.7-2.4) 03/17/23 07:06 Folate 10.12 ng/ml (>5.38) 03/17/23 07:06 SARS-CoV-2, RNA, NAAT NEGATIVE (NEGATIVE) 03/16/23 05:55 Impressions Knee X-Ray 03/16/23 10:45 TWO VIEWS RIGHT KNEE CLINICAL HISTORY: Postoperative examination. FINDINGS: AP and crosstable lateral portable views of the right knee are obtained. A right knee arthroplasty is in near anatomic alignment. There has been undersurface remodeling of the patella. No acute fracture is seen. There are expected postoperative changes around the knee including a surgical drain, soft tissue edema, and subcutaneous gas. IMPRESSION: Expected postoperative changes status post right knee arthroplasty. No acute fracture is seen. ACT 112: Negative or not required by law. Electronically signed by: Elier Lewis M.D. 03/16/2023 11:55 AM Chest X-Ray 03/16/23 16:28 XR chest 1V portable CLINICAL HISTORY: wheezing, eval volume overload TECHNIQUE: Single frontal radiograph of the chest was obtained. Comparison: Comparison is made to chest radiograph 02/22/2023 FINDINGS: A port catheter is seen. The cardiomediastinal silhouette is stable. Prominence and cephalization of the vasculature is seen. No evidence of pleural effusion or pneumothorax. IMPRESSION: Mild pulmonary edema, increased from prior exam. ACT 112: Negative or not required by law. Electronically signed by: Omar Miranda M.D. 03/16/2023 4:47 PM
--- NOTE | 2023-03-17 11:41 | Discharge Summary ---
Date of Service March 17, 2023 Admission HPI Per Admitting Provider Mabel is a pleasant 72-year-old female presents for preop evaluation prior to right total knee replacement. She has been having pain in his knee for many years now which is gradually worsened and is now affecting her daily activities including walking standing going up and down stairs. She rates her current pain as a 7 out of 10, she has tried previous viscosupplementation as well as corticosteroid injection without much improvement, she is unable to take anti- inflammatories secondary to using Eliquis. At this point time is failed conservative measures and would like to proceed with a right total knee replacem ent Admission Exam Per Admitting Provider Physical Exam: HT: 5ft 4in WT: 111 kg Constitutional: WD/WN, vitals as above no acute distress Respiratory: normal respiratory effort, lungs clear to auscultation no respiratory distress, no labored breathing and does not use accessory muscles Cardiovascular: RRR, no murmur, no edema Gastrointestinal (Abdomen): normal bowel sounds, soft, nontender, no hepatosplenomegaly Musculoskeletal: Knee: + knee abnormal to inspection (RIGHT KNEE), + effusion (+1 effusion), + limited ROM of knee (ROM 0/3/110), + knee ROM with crepitation, + joint line tenderness (medial joint line) and + Jesus's sign positive; no deformity, no skin erythema, no ecchymosis, no valgus laxity, no varus laxity, anterior drawer test negative, Sania's sign negative and pivot shift test negative Principal Diagnosis Left Knee Osteoarthritis Discharge Data Allergies Allergy/AdvReac Type Severity Reaction Status Date / Time lisinopril Allergy Severe FACIAL AND Verified 03/16/23 06:05 THROAT SWELLING Consultations 03/16/23 12:06 Consult Hospitalist Routine Procedures Performed Operation Date: 03/16/23 08:00 Actual Procedures p Right Total Knee Arthroplasty(Right) - Gallo Goldberg DO Ordered Studies 03/16/23 05:00 US - OR guided needle placemen Routine Hospital Course (1) Arthritis of right knee: Patient:MABEL PEREYRA Admit Date:03/16/23 MR#:[id number] Att Phy:Gallo Goldberg,D.O. Acct ID:[id number] Claudette Phy:William Gray PA-C Date:1950 Fam Phy: Age:72 Location:3E Sex:F Room/Bed:E3191 cc: ~ *NOTICE TO RECEIVING DEMOCRAT/AGENCY This information is strictly Confidential and protected under [place] law. [place] law prohibits you from making any further disclosure of this information unless further disclosure is expressly permitted by the written consent of the person to whom it pertains or is authorized by law. A general authorization for the release of medical or other information is not sufficient for this purpose. Hospital accepts no responsibility if the information is made available to any other person, INCLUDING THE PATIENT. Date of Service March 17, 2023 Assessment & Plan (1) Arthritis of right knee: Plan: Postop day 1 status post right total knee arthroplasty PT/OT protocol. Weightbearing as tolerated. DVT prophylaxis-apixaban p.o. twice daily, SCDs, ALBERT hose Pain management as written. DC planning-patient is planning for home health services upon discharge. Admission and Anticipated Discharge Date Admission Date: March 16, 2023 Subjective Postop day 1 Patient sitting in her chair at the bedside. No complaints this morning. Pain is controlled. Physical therapy is entering the room and just about to start their session. Patient is hoping to go home today. Physical Exam Physical Exam: Dressings are clean, dry, and intact. Calves are soft nontender. Neurovascular is intact. Toes are mobile. She has good dorsiflexion and plantarflexion of the right foot. Hemovac drainage was approximately 75 cc from the previous shift. Results & Data Vital Signs (Past 12 Hours) Vital Signs Temp Pulse Resp BP Pulse Ox O2 Del Method 03/17/23 07:40 Room Air 03/17/23 06:08 36.6 C 55 L 18 135/82 97 Room Air 03/17/23 03:21 36.5 C 59 L 16 116/74 96 Room Air 03/16/23 23:13 36.8 C 65 16 118/68 95 Room Air Laboratory Results Laboratory Results WBC 7.85 K/ul (4.8-10.8) 03/17/23 07:06 RBC 2.93 M/uL (4.20-5.40) L 03/17/23 07:06 Hgb 10.4 g/dl (12.0-16.0) L 03/17/23 07:06 Hct 29.4 % (37.0-47.0) L 03/17/23 07:06 MCV 100.3 fL (80.0-100.0) H 03/17/23 07:06 MCH 35.5 pg (25.0-34.0) H 03/17/23 07:06 MCHC 35.4 g/dL (32.0-36.0) 03/17/23 07:06 RDW Std Deviation 50.0 fL (36.4-46.3) H 03/17/23 07:06 RDW Coeff of [place] 13.5 % (11.5-14.5) 03/17/23 07:06 Plt Count 145 K/uL (130-400) 03/17/23 07:06 MPV 10.4 fL (9.4-12.4) 03/17/23 07:06 Sodium 137 mmol/L (136-145) 03/17/23 07:06 Potassium 4.8 mmol/L (3.5-5.1) 03/17/23 07:06 Chloride 103 mmol/L (98-107) 03/17/23 07:06 Carbon Dioxide 27 mmol/L (21-32) 03/17/23 07:06 Anion Gap 7 (3-11) 03/17/23 07:06 BUN 29 mg/dl (6-23) H 03/17/23 07:06 Creatinine 1.02 mg/dl (0.6-1.2) 03/17/23 07:06 Est Cr Clr Drug Dosing 62.1 ml/min 03/17/23 07:06 Est GFR ( Amer) 62.8 ml/min 03/17/23 07:06 Est GFR (Non-Af Amer) 54.1 ml/min 03/17/23 07:06 BUN/Creatinine Ratio 28.4 (10-20) H 03/17/23 07:06 Glucose 147 mg/dl (70-99(Fasting)) H 03/17/23 07:06 Calcium 8.6 mg/dl (8.6-10.3) 03/17/23 07:06 Magnesium 2.1 mg/dl (1.7-2.4) 03/17/23 07:06 Folate 10.12 ng/ml (>5.38) 03/17/23 07:06 SARS-CoV-2, RNA, NAAT NEGATIVE (NEGATIVE) 03/16/23 05:55 Impressions Knee X-Ray 03/16/23 10:45 TWO VIEWS RIGHT KNEE CLINICAL HISTORY: Postoperative examination. FINDINGS: AP and crosstable lateral portable views of the right knee are obtained. A right knee arthroplasty is in near anatomic alignment. There has been undersurface remodeling of the patella. No acute fracture is seen. There are expected postoperative changes around the knee including a surgical drain, soft tissue edema, and subcutaneous gas. IMPRESSION: Expected postoperative changes status post right knee arthroplasty. No acute fracture is seen. ACT 112: Negative or not required by law. Electronically signed by: Elier Lewis M.D. 03/16/2023 11:55 AM Chest X-Ray 03/16/23 16:28 XR chest 1V portable CLINICAL HISTORY: wheezing, eval volume overload TECHNIQUE: Single frontal radiograph of the chest was obtained. Comparison: Comparison is made to chest radiograph 02/22/2023 FINDINGS: A port catheter is seen. The cardiomediastinal silhouette is stable. Prominence and cephalization of the vasculature is seen. No evidence of pleural effusion or pneumothorax. IMPRESSION: Mild pulmonary edema, increased from prior exam. ACT 112: Negative or not required by law. Electronically signed by: Omar Miranda M.D. 03/16/2023 4:47 PM Signed By: <Electronically signed by Eduardo Burton PA-C> 03/17/23 1010 Created:03/17/23 1007 Total Time Total Time Spent Total Time Spent (In Minutes): 5 Discharge Plan Discharge Items Patient Disposition: Home - Home Health Services Reason For Visit: Osteoarthritis Knee Right Discharge Diagnosis: Osteoarthritis Right KNee Activity: Per Instructions section Weightbearing: Right weightbearing Weightbearing Comment: as tolerated with walker Non-emergency contact: Surgeon Call non-emergency contact if: you have any medication questions, your pain is not controlled, your temperature is above 101.5, your wound has increased redness and your wound has increased drainage Follow-up/Referrals: Gallo Goldberg DO [Surgeon] - (Follow up with Dr Goldberg or his PA in 2 weeks from the day of surgery for your first post operative visit) William Gray [Primary Care Provider] - Diet: Regular Addtl Attending Provider Instructions: ACTIVITY RECOMMENDATIONS: SELF CARE INSTRUCTIONS AFTER TOTAL KNEE REPLACEMENT A. You may need to continue a physical therapy program after discharge from the hospital. There are several options available to you. Your doctor will assist you in selecting the best one for you. 1. An out-patient facility 2 to 3 times a week for therapy or home therapy. 2. Continue working on all exercises taught to you in the hospital. Your goals should be to increase bending of your knee to 90 degrees and beyond and to fully straighten your knee. B. You may progress at your own pace from walking with a walker or crutches to a cane; then to no assistive devices. C. Make walking a part of your daily routine. Be up as much as comfortable with rest periods throughout the day. Rest with leg elevation is very important. Use the ice wrap frequently for the first 3-4 weeks. D. There are no restrictions on activities. You may ride in a car, shop, participate in residential sales executive and all social activities. E. Wear the long elastic stockings (ALBERT hose) 20 hours a day for 2 weeks after surgery. They can be removed several times a day for laundering and for a bath. F. You may shower, no tub baths until cleared by your doctor. SPECIAL CARE INSTRUCTIONS: VERY IMPORTANT TO READ AND REVIEW A. There are a few signs you need to watch for after you are home. Call [facility] if you notice any of the followin. Increased severe knee pain. Some pain is expected especially when you exercise. 2. Increased swelling in your leg or knee; pain or swelling of the calf muscle in either lower leg. 3. Any fluid drainage from the incision. 4. Shortness of breath or chest pain. B. Please call [facility] at if you have any concerns or questions about your operation or recovery. The doctor or his nurse will return your call promptly. C. You must take antibiotics before dental work, bladder, bowel or other surgery. Your doctor will provide you with a permanent care to carry describing this precaution. IMPORTANT: * REMEMBER TO TAKE APIXABAN 5MG BY MOUTH TWICE DAILY. * CALL IF INCREASED PAIN, REDNESS, DRAINAGE OR FEVER GREATER THAT 101. * WEAR ALBERT HOSE 20 HOURS PER DAY FOR 2 WEEKS. * LIZZY Dressing- This is a large suction dressing covering your incision. This will help pull any excess drainage from the wound and allow your incision to heal properly. You may shower with this if you can keep the unit outside of the shower. If any bleeding or leakage is noted please call your doctor's office. This will remain on your incision for 7 days and then should be removed. This can be done yourself or by the home nursing staff if applicable. The entire unit is disposable once removed. Once removed, keep incision clean and dry and follow these wound care instructions: DERMABOND Prineo- This is a mesh tape dressing that is covered with glue. It should remain in place until the incision is properly healed, usually 10-14 days. This dressing is designed to naturally slough off. You may trim the excess mesh tape as it peels off. Incision may be briefly wet in a shower. Dry immediately by blotting with a clean, dry towel. Do not bath or swim until instructed by your doctor. Do not scratch, rub, or pick at the dressing. Do not apply any topical ointments or lotions until dressing is completely removed and/or instructed by your doctor. There may be a small piece of suture material at one end of your incision. Do not pull or trim this. If it is bothersome or catching on clothing, you may cover it with a band-aid. If redness or drainage is noted, please call your surgeon. . FOLLOW UP VISIT: If appointment is not already scheduled: Please call [facility] to make a follow-up appointment for 2 weeks after your surgery at . Stand-Alone Forms: [facility] Volt, Smoking Cessation Medications and DC Order Prescriptions: New acetaminophen [Tylenol Extra Strength] 500 mg Tablet 1,000 mg PO Q8 14 Days Qty: 84 0RF polyethylene glycol 3350 [Miralax] 17 gram powder in packet 17 g PO DAILY PRN (Reason: constipation) Qty: 5 0RF cefadroxil 500 mg capsule 500 mg PO BID Qty: 28 1RF oxycodone 5 mg tablet 5 mg PO Q4H MDD 6 PRN (Reason: pain) Qty: 30 0RF Continued anastrozole 1 mg tablet 1 mg PO QAM apixaban 5 mg tablet 5 mg PO BID Qty: 180 3RF Rx Instructions: Take 1 tablet by mouth twice a day. potassium chloride [Klor-Con M20] 20 mEq tablet,ER particles/crystals 20 meq PO QAM montelukast 10 mg tablet 10 mg PO QAM furosemide 40 mg tablet 40 mg PO QAM metoprolol succinate 50 mg tablet extended release 24 hr 75 mg PO HS cyanocobalamin (vitamin B-12) [Vitamin B-12] 2,500 mcg Tablet, Sublingual 2,500 mcg SUBLINGUAL QAM diltiazem HCl 240 mg capsule,extended release 24hr 240 mg PO QAM Held omega 3-hco-gsr-fish oil [Fish Oil] 1,200 (144-216) mg Capsule 2 cap PO QAM Hold Instructions: Please hold your omega-3 capsules for 2 weeks. Admission Data Admit Date/Time: 03/16/23 10:45 Attending Provider: Gallo Goldberg Admit Provider: Gallo Goldberg Primary Care Provider: iWlliam Gray Other Providers: Gallo Coleman ; Renae Enriquez ; Roger Reyes [facility] Other Interventions: Discharge Summary Assessment (RN) Last Done: 03/17/23 10:34
== END 2023-03-17 11:41 | disposition home health service (06) ==
LOC: 3E 05:46 → ASU 05:46